=== PATIENT | male | born 1970 | race Caucasian/White ===

== ENCOUNTER 2017-10-13 12:09 | Emergency (ER) | payer BC ==
[2017-10-13 12:14] VITALS: BP 129/94; PULSE 109; TEMP 98.1; BMI 28.2
--- NOTE | 2017-10-13 12:45 | PDOC ---
History of Present Illness - General Chief Complaint: Pain Stated Complaint: KNEE PAIN Time Seen by Provider: 10/13/17 12:23 History Source: Patient Exam Limitations: Clinical Condition - History of Present Illness Initial Comments: 10/13/17 12:42 Patient with no significant past medical history present with complain of persistent left knee pain on the medial side for a month. Patient denies trauma or injury to left knee. Patient reported feeling of left knee swelling which comes and goes. Denies any other symptoms Timing/Duration: other (1 month ) Past History - Past Medical History Allergies/Adverse Reactions: Allergies Allergy/AdvReac Type Severity Reaction Status Date / Time piperacillin sodium Allergy Intermediate Difficulty Verified 10/13/17 12:13 [From Zosyn] Breathing tazobactam sodium Allergy Intermediate Difficulty Verified 10/13/17 12:13 [From Zosyn] Breathing vancomycin Allergy Itching Verified 10/13/17 12:13 Home Medications: Ambulatory Orders Leg Brace [Knee Brace] 1 each MC DAILY #1 each 10/13/17 Naproxen 500 mg PO BID PRN #20 tablet 10/13/17 Asthma: No COPD: No - Suicide/Smoking/Psychosocial Hx Smoking Status: No Smoking History: Never smoked Have you smoked in the past 12 months: No Number of Cigarettes Smoked Daily: 0 Hx Alcohol Use: No Drug/Substance Use Hx: No Substance Use Type: None Review of Systems - Review of Systems Able to Perform ROS?: Yes Is the patient limited Filipino proficient: No Constitutional: No: Chills, Diaphoresis, Fever, Loss of Appetite, Malaise, Night Sweats, Weakness, Weight Stable, Unintentional Wgt. Loss, Unexplained wgt Loss, Other HEENTM: No: Eye Pain, Blurred Vision, Tearing, Recent change in vision, Double Vision, Cataracts, Ear Pain, Ocular Prothesis, Ear Discharge, Nose Pain, Nose Congestion, Tinnitus, Nose Bleeding, Hearing Loss, Throat Pain, Throat Swelling , Mouth Pain, Dental Problems, Difficulty Swallowing, Mouth Swelling, Other Respiratory: No: Cough, Orthopnea, Shortness of Breath, SOB with Exertion, SOB at Rest, Stridor, Wheezing, Productive cough, Hemoptysis, Other Cardiac (ROS): No: Chest Pain, Edema, Irregular Heart Rate, Lightheadedness, Palpitations, Syncope, Chest Tightness, Other ABD/GI: No: Abdominal Distended, Abd. Pain w/ defecation, Blood Streaked Bowels , Constipated, Diarrhea, Difficulty Swallowing, Nausea, Poor Appetite, Poor Fluid Intake, Rectal Bleeding, Vomiting, Indigestion, Abdominal cramping, Tarry Stools, Other Musculoskeletal: Yes: Joint Pain (left knee), Joint Swelling (left knee), Muscle Pain (medial side of left knee). No: Joint Stiffness All Other Systems: Reviewed and Negative *Physical Exam - Vital Signs Last Vital Signs Temp Pulse Resp BP Pulse Ox 98.1 F 109 H 20 129/94 99 10/13/17 12:10 10/13/17 12:10 10/13/17 12:10 10/13/17 12:10 10/13/17 12:10 - Physical Exam Comments: 10/13/17 12:43 GENERAL: Well developed, well nourished. Awake and alert. No acute distress. HEENT: Normocephalic, atraumatic. PERRLA, EOMI. No conjunctival pallor. Sclera are non- icteric. Moist mucous membranes. Oropharynx is clear. NECK: Supple. Full ROM. No JVD. Carotid pulses 2+ and symmetric, without bruits. No thyromegaly. No lymphadenopathy. CARDIOVASCULAR: Regular rate and rhythm. No murmurs, rubs, or gallops. Distal pulses are 2+ and symmetric. PULMONARY: No evidence of respiratory distress. Lungs clear to auscultation bilaterally. No wheezing, rales or rhonchi. ABDOMINAL: Soft. Non-tender. Non-distended. No rebound or guarding. No organomegaly. Normoactive bowel sounds. MUSCULOSKELETAL : Moderate tenderness over medial collateral ligaments of left knee which is worse with external rotation of left lower leg. Mild swelling over medial side of left knee. Negative anterior-posterior drawer tests of left knee.Normal range of motion at all joints. No bony deformities EXTREMITIES: No cyanosis. No clubbing. No edema. No calf tenderness. SKIN: Warm and dry. Normal capillary refill. No rashes. No jaundice. NEUROLOGICAL: Alert, awake, appropriate. Cranial nerves 2-12 intact. No deficits to light touch and temperature in face, upper extremities and lower extremities. No motor deficits in the in face, upper extremities and lower extremities. Normoreflexic in the upper and lower extremities. Normal speech. Toes are down- going bilaterally. Gait is normal without ataxia. PSYCHIATRIC: Cooperative. Good eye contact. Appropriate mood and affect. General Appearance: Yes: Nourished, Appropriately Dressed. No: Apparent Distress ED Treatment Course - RADIOLOGY Radiology Studies Ordered: Category Date Time Status KNEE 3 POS-LEFT [RAD] Stat Radiology 10/13/17 12:40 Ordered Medical Decision Making - Medical Decision Making 10/13/17 12:45 Patient with no sick the past medical history present with complain of persistent left knee pain for a month without trauma or injury. Exam shows moderate tenderness over medial collateral ligament of left knee. Symptoms likely knee sprain. X-ray of left knee ordered to rule out acute pathology or fracture. 10/13/17 13:28 X-ray of left knee shows no acute fracture dislocation. X-ray shows mild arthritis changes with small joint effusion. Patient will be treated on NSAIDs and knee brace with orthopedist follow-up *DC/Admit/Observation/Transfer Diagnosis at time of Disposition: Ankle sprain Qualifiers: Encounter type: initial encounter Involved ligament of ankle: unspecified ligament Laterality: left Qualified Code(s): S93.402A - Sprain of unspecified ligament of left ankle, initial encounter - Discharge Dispostion Disposition: HOME Condition at time of disposition: Stable Decision to Admit order: No - Prescriptions Prescriptions: Leg Brace [Knee Brace] 1 each MC DAILY #1 each Naproxen 500 mg PO BID PRN #20 tablet PRN Reason: knee pain - Referrals Referrals: Lencho Kemp MD [Primary Care Provider] - - Patient Instructions Printed Discharge Instructions: DI for Knee Effusion, DI for Knee Pain Additional Instructions: Take prescribed medication as needed for pain. Keep prescribed knee brace on until symptoms resolve. Follow up with preferred orthopedics if no improvement in 5 days - Post Discharge Activity Forms/Work/School Notes: Back to Work
[2017-10-13] MEDS ORDERED: NAPROXEN 500 MG TABLET (FP) PO ONE (13:33)
[2017-10-13] MEDS ORDERED: NAPROXEN 500 MG TABLET (FP) ONE (13:37)
== END 2017-10-13 13:48 | disposition home or self-care (01) ==
LOC: JERFT 12:09
PROC: 2W3RXYZ Immobilization of Left Lower Leg using Other Device (ICD-10-PCS; principal; 2017-10-13)
DX: M25.462 Effusion, left knee (principal)
CPT/HCPCS: 73562-TC-LT-FY; 99281-25

== ENCOUNTER 2017-12-08 11:45 | Emergency (ER) | payer OTHER, BC ==
[2017-12-08 11:50] VITALS: BP 132/81; PULSE 92; TEMP 98.6; BMI 29.0
--- NOTE | 2017-12-08 12:31 | PDOC ---
History of Present Illness - General Chief Complaint: Back Pain Stated Complaint: BACK PAIN JOB INJURY Time Seen by Provider: 12/08/17 12:09 History Source: Patient Exam Limitations: No Limitations - History of Present Illness Initial Comments: 12/08/17 12:32 Patient states while at work today bent over to lift some kidney lid or and had an acute onset of spasm and pain in his back. States has suffered from disc disease and has resolved with therapy and some medications but has not had a problem for many months. States this morning with a small movement re- exacerbated his low back pain. Patient states has some testicular numbness but is able to urinate. States that happened with the previous low back injury. Is ambulatory and denies foot drop. Occurred: reports: just prior to arrival Severity: reports: mild, moderate Pain Location: reports: back Method of Injury: Yes: other (heavy lifting) Modifying Factors: improves with: None Associated Symptoms (Fall): denies symptoms Past History - Travel Traveled outside of the country in the last 30 days: No Close contact w/someone who was outside of country & ill: No - Past Medical History Allergies/Adverse Reactions: Allergies Allergy/AdvReac Type Severity Reaction Status Date / Time piperacillin sodium Allergy Intermediate Difficulty Verified 12/08/17 11:47 [From Zosyn] Breathing tazobactam sodium Allergy Intermediate Difficulty Verified 12/08/17 11:47 [From Zosyn] Breathing vancomycin Allergy Itching Verified 12/08/17 11:47 Home Medications: Ambulatory Orders Leg Brace [Knee Brace] 1 each MC DAILY #1 each 10/13/17 Naproxen 500 mg PO BID PRN #20 tablet 10/13/17 Cyclobenzaprine HCl 10 mg PO Q8H PRN #14 tablet 12/08/17 Naproxen [Naprosyn -] 500 mg PO BID #30 tablet 12/08/17 Asthma: No COPD: No Other medical history: BACK PROBLEMS - Suicide/Smoking/Psychosocial Hx Smoking Status: No Smoking History: Never smoked Have you smoked in the past 12 months: No Number of Cigarettes Smoked Daily: 0 Information on smoking cessation initiated: No Hx Alcohol Use: No Drug/Substance Use Hx: No Substance Use Type: None Trauma Specific PMHX - Complaint Specific PMHX Arthritis: No Back Injury: No Neck Injury: No Hx Sacro Iliac Joint Dysfunction: No Review of Systems - Review of Systems Able to Perform ROS?: Yes Is the patient limited Danish proficient: Yes Constitutional: Yes: Symptoms Reported, See HPI, Malaise. No: Fever HEENTM: No: Symptoms Reported Respiratory: Yes: Symptoms reported Musculoskeletal: Yes: Symptoms Reported, See HPI, Back Pain, Muscle Pain Integumentary: Yes: Symptoms Reported Neurological: Yes: Symptoms reported All Other Systems: Reviewed and Negative *Physical Exam - Vital Signs Last Vital Signs Temp Pulse Resp BP Pulse Ox 98.6 F 92 H 18 132/81 100 12/08/17 11:47 12/08/17 11:47 12/08/17 11:47 12/08/17 11:47 12/08/17 11:47 - Physical Exam General Appearance: Yes: Nourished, Appropriately Dressed, Apparent Distress, Moderate Distress HEENT: positive: EZEQUIEL, Normal ENT Inspection, TMs Normal, Pharynx Normal Neck: positive: Supple. negative: Tender Gastrointestinal/Abdominal: positive: Soft. negative: Tender Musculoskeletal: positive: Normal Inspection, Decreased Range of Motion, Muscle Spasm (10th tight spasm noted to the left side paravertebral spinous musculature ). negative: CVA Tenderness Integumentary: positive: Dry, Pale Neurologic: positive: ip paralegal II-XII NML intact, Fully Oriented, Alert, Normal Mood/ Affect, Normal Response. negative: Motor Strength 5/5 Progress Note - Progress Note Progress Note: Acute on chronic back pain. With spasm. We'll treat with NSAIDs and cyclobenzaprine. Given dose of Toradol here and 5mg of Valium by mouth *DC/Admit/Observation/Transfer Diagnosis at time of Disposition: Spasm of muscle of lower back - Discharge Dispostion Disposition: HOME Condition at time of disposition: Stable Decision to Admit order: No - Referrals Referrals: Lencho Kemp MD [Primary Care Provider] - Piotr Lewis MD [Staff Physician] - - Patient Instructions Printed Discharge Instructions: DI for Low Back Pain Additional Instructions: Rest, no heavy lifting or exercise until pain is resolved Hot soaks to neck and low back as often as possible/hot showers or Jacuzzis No massage or therapy until spasm is gone Continue Naprosyn 500 mg tablet, 1 tablet every 12 hours for the next 3 days then as needed for pain and swelling Cyclobenzaprine 1-10mg every 8 hours as needed for spasm If not significant improvement within 24 hours with medication and rest regime, followup with private physician for change in medications and /or therapy. - Post Discharge Activity Forms/Work/School Notes: Back to Work
[2017-12-08] MEDS ORDERED: diazePAM 5 MG TABLET PO ONE (12:36)
[2017-12-08] MEDS ORDERED: KETOROLAC TROMETHAMINE 60 MG/2 ML VIAL IM ONE (12:36)
[2017-12-08] MEDS ORDERED: KETOROLAC TROMETHAMINE 30 MG/1 ML VIAL ONE (12:38)
[2017-12-08] MEDS ORDERED: diazePAM 5 MG TABLET ONE (12:38)
== END 2017-12-08 13:15 | disposition home or self-care (01) ==
LOC: JERFT 11:45
PROC: 3E0233Z Introduction of Anti-inflammatory into Muscle, Percutaneous Approach (ICD-10-PCS; principal; 2017-12-08)
DX: M62.830 Muscle spasm of back (principal); X50.9XXA Other and unspecified overexertion or strenuous movements or postures, initial encounter; Y93.89 Activity, other specified; Y92.89 Other specified places as the place of occurrence of the external cause; Y99.0 Civilian activity done for income or pay; Z88.1 Allergy status to other antibiotic agents
CPT/HCPCS: 99281-25

== ENCOUNTER 2018-01-10 04:53 | Day surgery (SDC) | payer BC ==
[2018-01-08 15:05] VITALS: BMI 28.2
[2018-01-10] MEDS ORDERED: LIDOCAINE HCL 1%, 10 MG/ML (20ML VIAL) ONE (07:27)
[2018-01-10] MEDS ORDERED: BACITRACIN 15 GM TUBE TOPICAL OINTMENT ONE (07:27)
[2018-01-10] MEDS ORDERED: PROPOFOL 20 ML ONE (07:55)
[2018-01-10] MEDS ORDERED: MIDAZOLAM HCL 2 MG/2 ML SINGLE DOSE VIAL ONE (07:55)
[2018-01-10] MEDS ORDERED: LIDOCAINE HCL/PF 2% SDV 5ML VIAL ONE (07:56)
[2018-01-10] MEDS ORDERED: ceFAZolin SODIUM 1 GM VIAL ONE (08:09)
[2018-01-10] MEDS ORDERED: ceFAZolin SODIUM 1 GM VIAL IVPB ONE (08:09)
[2018-01-10] MEDS ORDERED: DEXAMETHASONE SOD PHOSPHATE 4 MG/1 ML VIAL ONE (08:12)
[2018-01-10] MEDS ORDERED: KETOROLAC TROMETHAMINE 30 MG/1 ML VIAL ONE (08:30)
[2018-01-10] MEDS ORDERED: LIDOCAINE HCL 1%, 10 MG/ML (20ML VIAL) PNB ONE (08:31)
[2018-01-10] MEDS ORDERED: oxyCODONE HCL 5 MG TABLET PO PRN ×2 (08:42→08:47)
[2018-01-10] MEDS ORDERED: DEXTROSE 5%-0.45% SALINE 1,000 ML IV SCH (08:45)
--- NOTE | 2018-01-10 08:45 | OP ---
Operative Note - Note: Operative Date: 01/10/18 Pre-Operative Diagnosis: left spermatocele Operation: left spermatocelectomy Findings: left spermatocele Post-Operative Diagnosis: Same as Pre-op Surgeon: Ady Shea Anesthesia: General Specimens Removed: spermatocele sac Estimated Blood Loss (mls): 2 Drains & Tubes with Location: errol Operative Report Dictated: Yes
[2018-01-10] MEDS ORDERED: ONDANSETRON 4 MG/2 ML VIAL IVPUSH PRN (08:47)
[2018-01-10] MEDS ORDERED: PROMETHAZINE HCL 25 MG/1 ML VIAL IVPUSH PRN (08:47)
[2018-01-10] MEDS ORDERED: LABETALOL HCL 5 MG/1 ML (100MG/20 ML VIAL) IVPUSH ONE (08:47)
[2018-01-10] MEDS ORDERED: LACTATED RINGERS SOLUTION 1,000 ML IV SCH (09:00)
--- NOTE | 2018-01-10 09:05 | OP ---
DATE OF OPERATION: 01/10/2018 PREOPERATIVE DIAGNOSIS: Left spermatocele. POSTOPERATIVE DIAGNOSIS: Left spermatocele. PROCEDURE: Left spermatocelectomy. SURGEON: Ady Vora MD INDICATIONS: Patient is a 47-year-old male with symptomatic left spermatocele who elected to undergo a spermatocelectomy. Risks, benefits, and alternatives were discussed, and patient consented to the procedure. He understood the risks also of recurrent spermatocele and persistent abdominal pain. DESCRIPTION OF PROCEDURE: After informed consent was obtained, the patient was taken to the OR and placed supine on the operating room table. After cardiac monitoring administered and general anesthesia established, the scrotum was prepped and draped in standard surgical fashion. An approximately 2-cm left melisa-scrotal incision was created with a No. 15 blade, and then using cautery, the dartos layer was incised as well as the tunica vaginalis. The testis was then delivered. An approximately 2-cm cyst was seen at the epididymis. The cyst was excised in its entirety and tied off at its connection to the epididymis with a 3-0 chromic tie and then sent off to Pathology for analysis. No other cysts were noted, and testicle was placed back in its normal anatomic position. A Yolanda drain was placed in the incision, and the dartos layer was closed with an interrupted 3-0 chromic suture, and the skin was closed with interrupted 3-0 chromic suture, as well. Fluffs and scrotal support were placed. Patient was then awoken from anesthesia and transferred to the recovery room in stable condition. There were no complications. Estimated blood loss was minimal. ADY VORA M.D. [id number]
[2018-01-10 09:37] VITALS: TEMP 98.2
[2018-01-10] MEDS ORDERED: oxyCODONE HCL 5 MG TABLET ONE ×2 (09:58→10:58)
[2018-01-10] MEDS ORDERED: oxyCODONE HCL 5 MG TABLET PO ONE ×2 (10:00→11:02)
[2018-01-10 12:17] VITALS: BP 106/66; PULSE 96
--- NOTE | 2018-01-11 18:44 | PATH ---
Surgical Pathology Report Patient Name: SYEDA CEBALLOS Med. Rec. #: [id number] /Age/Gender: 1970 (Age: 47) / M Account: [id number] Location: [facility] SURGICAL Taken: 01/10/2018 Received: 01/10/2018 Reported: 01/11/2018 Physicians: Ady Shea M.D. Specimen(s) Received LEFT SPERMATOCELE Clinical History Left spermatocele Final Diagnosis SPERMATOCELE, LEFT, SPERMATOCELECTOMY: CYSTIC LESION COMPATIBLE WITH SPERMATOCELE AND PORTION OF EPIDIDYMIS. Electronically Signed Alisson Chery M.D. Gross Description Received in formalin labeled "left spermatocele," is a 3.2 x 0.9 x 0.8 cm waite-luis portion of soft tissue. [employer] sections are submitted in one cassette. DL/01/10/2018 saudi/01/10/2018
== END 2018-01-10 12:20 | disposition home or self-care (01) ==
LOC: JASU-SURG 04:53
PROVIDERS: ATTEND Urology
PROC: 0VBK0ZZ Excision of Left Epididymis, Open Approach (ICD-10-PCS; principal; 2018-01-10 08:00)
DX: N43.40 Spermatocele of epididymis, unspecified (principal)
CPT/HCPCS: 88304-TC; 94760

== ENCOUNTER 2018-05-30 04:58 | Emergency (ER) | payer BC ==
[2018-05-30 05:14] VITALS: BP 145/93; PULSE 98; TEMP 99.6; BMI 29.0
[2018-05-30] MEDS ORDERED: KETOROLAC TROMETHAMINE 15 MG/ML VIAL IVPUSH ONE (05:22)
[2018-05-30] MEDS ORDERED: ONDANSETRON 4 MG/2 ML VIAL IVPUSH ONE (05:22)
[2018-05-30] MEDS ORDERED: ACETAMINOPHEN 1000 MG/100 ML VIAL (NON FORMULARY) IVPB ONE (05:23)
[2018-05-30] MEDS ORDERED: DEXAMETHASONE 4 MG TABLET (FP) PO ONE (05:30)
[2018-05-30] MEDS ORDERED: DEXAMETHASONE SOD PHOSPHATE 10 MG/1 ML VIAL ONE (05:33)
[2018-05-30] MEDS ORDERED: ONDANSETRON 4 MG/2 ML VIAL ONE (05:34)
[2018-05-30] MEDS ORDERED: KETOROLAC TROMETHAMINE 15 MG/ML VIAL ONE (05:34)
[2018-05-30] MEDS ORDERED: ACETAMINOPHEN INJECTION 100 ML IVPB ONE (05:34)
--- NOTE | 2018-05-30 05:35 | PDOC ---
History of Present Illness - General Chief Complaint: Sore Throat Stated Complaint: HEADACHE,SORE THROAT Time Seen by Provider: 05/30/18 05:08 History Source: Patient Exam Limitations: No Limitations - History of Present Illness Initial Comments: 05/30/18 05:24 HPI 47 YOM with no medical history presenting with progressive cough, headache, fever, chills, weakness, nausea and vomiting, chest discomfort and sore throat/ ear pain x 12 hours. has had 10 episodes of NBNB emesis, associated with nausea and difficulty tolerating PO intake. took ibuprofen and otc robitussin without relief. +sick contact, coworker 3 days ago with similar sx, with respiratory s/s. Denies bladder and bowel problems, leg swelling, No travel. No new changes in medications. No suspicious food intake Allergies: zosyn, vancomycin Past Medical History: none Social history: No tobacco, ETOH or drug use. Surgical history: spermatocele surgery Meds: as documented in EMR Review of systems Constitutional: + fevers or chills. +general weakness. HEENT: +headache or dizziness. +ear ache, +sore throat, +difficulty swallowing. No congestion. No visual/hearing disturbances. CVS: no syncope. +chest pain Resp: no sob. + cough. Gastrointestinal: +abdominal pain, nausea or vomiting. Genitourinary: no urinary sx, hematuria. MUSCULOSKELETAL: No joint pain and swelling. No neck or back pain. +myalgias SKIN: no redness or skin changes, no discharge, no rash. No wounds. Hematologic: no easy bruising/bleeding. NEUROLOGIC: +headache, dizziness, No LOC or altered mental status. No weakness, numbness or tingling. Allergic/Immunologic: abx allergies. no seasonal allergies. All other systems reviewed and negative, or as documented in HPI. Physical exam: General: malaised appearing. HEENT: NCAT, PERRL, EOMI, clear conjunctiva, anicteric, dry mucus membranes, + erythematous oropharynx with +tonsillar exudates, no oral lesions.. bilateral T.M clear, no pinna tenderness. normal phonation, midline uvula. Neck: neck supple, FROM Resp: CTAB, normal and even respirations, no respiratory distress CVS: +mild tachycardia, no murmurs, 2+ peripheral pulses throughout, no peripheral edema Abdomen: soft, NTND, no peritoneal signs. no CVAT. Back: nontender, normal inspection and ROM MSK: no edema, UGALDE x4, ROM intact. No clubbing or cyanosis. normal bulk and tone. Neuro: alert, mentating Skin: warm and well perfused, cap refill <2 sec, normal color, no rash 05/30/18 05:24 05/30/18 05:35 05/30/18 05:37 Past History - Past Medical History Allergies/Adverse Reactions: Allergies Allergy/AdvReac Type Severity Reaction Status Date / Time piperacillin sodium Allergy Intermediate Difficulty Verified 05/30/18 05:07 [From Zosyn] Breathing tazobactam sodium Allergy Intermediate Difficulty Verified 05/30/18 05:07 [From Zosyn] Breathing vancomycin Allergy Itching Verified 05/30/18 05:07 Home Medications: Ambulatory Orders Naproxen 500 mg PO BID PRN #20 tablet 10/13/17 Cyclobenzaprine HCl 10 mg PO Q8H PRN #14 tablet 12/08/17 Amoxicillin - [Amoxicillin 500mg Capsule -] 500 mg PO BID 10 Days #20 capsule Ondansetron [Zofran Odt -] 4 mg SL TID PRN #9 od.tablet 05/30/18 Anemia: No Asthma: No Cancer: No Cardiac Disorders: No CVA: No COPD: No CHF: No Dementia: No Diabetes: No GI Disorders: Yes (acid reflux) Disorders: No HTN: No Hypercholesterolemia: No Liver Disease: No Seizures: No Thyroid Disease: No - Immunization History Immunization Up to Date: Yes - Suicide/Smoking/Psychosocial Hx Smoking Status: No Smoking History: Never smoked Have you smoked in the past 12 months: No Number of Cigarettes Smoked Daily: 0 Information on smoking cessation initiated: No Hx Alcohol Use: No Drug/Substance Use Hx: No Substance Use Type: None Hx Substance Use Treatment: No *Physical Exam - Vital Signs Last Vital Signs Temp Pulse Resp BP Pulse Ox 99.6 F 98 H 20 145/93 97 05/30/18 05:13 05/30/18 05:13 05/30/18 05:13 05/30/18 05:13 05/30/18 05:13 Heart Score/ECG Review #1 ECG reviewed & interpreted by me at: 05:40 General ECG Interpretation: Sinus Rhythm, No acute ischemic changes Compared to previous ECG there are: No significant change 05/30/18 06:02 EKG sinus tachycardia at 121 bpm, no interval abnormalities, narrow QRS, ST and T wave segments and morphology normal. Nonspecific T wave abnormalities in III only, no contiguous lead changes. - ECG Impressions Tachycardia: Sinus ED Treatment Course - LABORATORY CBC & Chemistry Diagram: 05/30/18 05:31 05/30/18 05:31 Medical Decision Making - Medical Decision Making 05/30/18 05:35 See HPI for details Vital signs reviewed, wnl. no fever here, but LG temp. tachy on exam, likely from brewing fevers. ddx. pharyngitis, strep throat, URI, viral syndrome, influenza, dehydration, electrolyte/metabolic derangements. Prior notes reviewed, including admissions, discharges and consultations. laboratory results and imaging reviewed, basic labs and lytes wnl, notable for leukocytosis of 18K, c/w his infection. nontoxic appearing though, likely from the sore throat/strep pharyngitis. +strep throat, pt opts for amoxicillin x 10 day course, will give first dose. pt has zosyn allergy rxn of difficulty breathing and itch, but has taken amox and unasyn previously w/o issues.. EKG sinus tachycardia at 121 bpm, no interval abnormalities, narrow QRS, ST and T wave segments and morphology normal. Nonspecific T wave abnormalities in III only, no contiguous lead changes. similar to prior. ED course - strep throat. - given dexamethasone, toradol/tylenol, IVF hydration - on reassessment, clinically improved. requesting water, tolerating PO intake. - strict return precautions, including worsening infection, respiratory distress. Dispo: Pt informed of my clinical impression, treatment recommendations and disposition plan. All questions answered to patient's satisfaction and expressed understanding and comfort with this. Reasons for returning to the ED sooner discussed including new or persistent/worsening symptoms with the patient otherwise, follow up with primary care physician. At the time of discharge, the patient is alert, clinically improved, tolerating po and verbalizes understanding of instructions, satisfied with the care received and felt comfortable with the plan. Patient does not suffer from an acute life- threatening medical condition at this time he is safe for outpatient follow-up. 05/30/18 06:03 *DC/Admit/Observation/Transfer Diagnosis at time of Disposition: Strep pharyngitis - Discharge Dispostion Disposition: HOME Condition at time of disposition: Improved Decision to Admit order: No - Prescriptions Prescriptions: Amoxicillin - [Amoxicillin 500mg Capsule -] 500 mg PO BID 10 Days #20 capsule Ondansetron [Zofran Odt -] 4 mg SL TID PRN #9 od.tablet PRN Reason: Nausea And/Or Vomiting - Referrals Referrals: Lencho Kemp MD [Primary Care Provider] - - Patient Instructions Printed Discharge Instructions: DI for Strep Throat Additional Instructions: 1) Please follow-up with your primary care doctor Dr Kemp in the next 1-2 days. Please call tomorrow for for any urgent issues. 2) You were given a copy of the tests performed today. Please bring the results with you and review them with your primary care doctor. Your laboratory work here was remarkable for Strep Throat you were given oral steroids, for the inflammation, tylenol and toradol and IV fluids this is contagious, cover your cough and wash your hands adequately with soap and water. 3) If you have any worsening of symptoms or any other concerns please return to the ED immediately. Return if worsening symptoms including fevers, headache, vomiting, visual or hearing disturbances, abdominal pain, chest pain, shortness of breath, bloody cough, respiratory distress, syncope, dehydration, inability to take things by mouth/vomiting, altered mental status, or worsening concerning symptoms. 4) Please continue taking your home medications as directed. your medications on discharge include amoxicillin antibiotics x 10 days . side effects may include upset stomach, abdominal pain, vomiting, or diarrhea. do not drink alcohol with your medications. if you develop respiratory distress or airway trouble with the antibiotic, stop taking it due to your prior allergies. zofran every 8 hours under the tongue for nausea and vomiting, this will help you keep food and medications down. Please take IBUPROFEN (aka MOTRIN, ADVIL, ALEVE) 400 mg and/or ACETAMINOPHEN ( aka Tylenol) 650-975 mg every 6 hours, as needed, for pain. Please do not take these medications if you have a bleeding disorder, stomach or GI ulcer problems or liver disease. Stay well hydrated and rest adequately. an appointment. If you cannot follow-up with your primary care doctor please return to the ED - Post Discharge Activity Forms/Work/School Notes: Back to Work
[2018-05-30 05:44] LABS: BASO % 0.7 % (0-2.0); EOS % 0.1 % (0-4.5); HEMATOCRIT 44.1 % (35.4-49); HEMOGLOBIN 14.7 GM/dL (11.7-16.9); LYMPH % 4.6 % (8-40); MCH 25.8 pg (25.7-33.7); MCHC 33.4 g/dl (32.0-35.9); MEAN CELL VOLUME 77.3 fl (80-96); MEAN PLT VOLUME 8.6 fl (7.5-11.1); MONO % 7.8 % (3.8-10.2); NEUT % 86.8 % (42.8-82.8); PLATELET COUNT 183 K/MM3 (134-434); RDW 15.4 % (11.9-15.9); WHITE BLOOD COUNT 18.3 K/mm3 (4.0-10.0)
[2018-05-30] MEDS ORDERED: AMOXICILLIN 500 MG CAPSULE (FP) PO ONE (05:45)
[2018-05-30] MEDS ORDERED: AMOXICILLIN 500 MG CAPSULE (FP) ONE (06:02)
[2018-05-30 06:12] LABS: ALK PHOS 68 U/L (45-117); ANION GAP 8 MMOL/L (8-16); BILIRUBIN,TOTAL 0.5 mg/dL (0.2-1); BLOOD UREA NITROGEN 12 mg/dL (7-18); CALCIUM 9.1 mg/dL (8.5-10.1); CHLORIDE 103 mmol/L (98-107); CO2 26 mmol/L (21-32); CREATININE 1.1 mg/dL (0.55-1.3); GLUCOSE,RANDOM 125 mg/dL (74-106); SGOT/AST 17 U/L (15-37); SGPT/ALT 34 U/L (13-61); SODIUM 138 mmol/L (136-145); TOT PROT 8.2 g/dl (6.4-8.2)
--- NOTE | 2018-05-30 12:12 | EKG ---
Test Reason : Blood Pressure : / mmHG Vent. Rate : 121 BPM Atrial Rate : 121 BPM P-R Int : 134 ms QRS Dur : 092 ms QT Int : 304 ms P-R-T Axes : 057 -15 014 degrees QTc Int : 431 ms SINUS TACHYCARDIA POSSIBLE LEFT ATRIAL ENLARGEMENT INFERIOR INFARCT , AGE UNDETERMINED ABNORMAL ECG WHEN COMPARED WITH ECG OF 08-FEB-2015 06:32, NO SIGNIFICANT CHANGE WAS FOUND Confirmed by FAITH CRISOSTOMO, TOVA ([id number]) on 05/30/2018 12:12:20 PM Referred By: Confirmed By:TOVA CUEVAS MD
== END 2018-05-30 06:37 | disposition home or self-care (01) ==
LOC: JER 04:58
DX: J02.0 Streptococcal pharyngitis (principal); B95.0 Streptococcus, group A, as the cause of diseases classified elsewhere; Z88.3 Allergy status to other anti-infective agents
CPT/HCPCS: 36415; 80053; 85025; 87070; 87077; 87804; 87880; 93005; 93010; 99283-25; J0131

== ENCOUNTER 2018-08-05 08:55 | Emergency (ER) | payer OTHER, BC ==
[2018-08-05 09:00] VITALS: BP 151/99; PULSE 94; TEMP 97.8; BMI 29.0
--- NOTE | 2018-08-05 09:47 | PDOC ---
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 08/05/18 13:23 Occurred: reports: just prior to arrival, this morning Severity: reports: mild, moderate Pain Location: reports: upper extremity (ight index finger) Associated Symptoms (Fall): denies symptoms Past History - Travel Traveled outside of the country in the last 30 days: No Close contact w/someone who was outside of country & ill: No - Past Medical History Allergies/Adverse Reactions: Allergies Allergy/AdvReac Type Severity Reaction Status Date / Time piperacillin sodium Allergy Intermediate Difficulty Verified 08/05/18 08:56 [From Zosyn] Breathing tazobactam sodium Allergy Intermediate Difficulty Verified 08/05/18 08:56 [From Zosyn] Breathing vancomycin Allergy Itching Verified 08/05/18 08:56 Home Medications: Ambulatory Orders Clindamycin [Cleocin -] 300 mg PO TID #21 capsule 08/05/18 Anemia: No Asthma: No Cancer: No Cardiac Disorders: No CVA: No COPD: No CHF: No Dementia: No Diabetes: No GI Disorders: Yes (acid reflux) Disorders: No HTN: No Hypercholesterolemia: No Liver Disease: No Seizures: No Thyroid Disease: No - Immunization History Immunization Up to Date: Yes - Suicide/Smoking/Psychosocial Hx Smoking Status: No Smoking History: Current every day smoker Have you smoked in the past 12 months: No Number of Cigarettes Smoked Daily: 20 Information on smoking cessation initiated: No Hx Alcohol Use: No Drug/Substance Use Hx: No Substance Use Type: None Hx Substance Use Treatment: No Trauma Specific PMHX - Complaint Specific PMHX Arthritis: No Back Injury: No Neck Injury: No Hx Sacro Iliac Joint Dysfunction: No Review of Systems - Review of Systems Able to Perform ROS?: Yes Is the patient limited Mongolian proficient: Yes Constitutional: Yes: See HPI. No: Symptoms Reported, Fever HEENTM: No: Symptoms Reported Musculoskeletal: Yes: Symptoms Reported, See HPI. No: Joint Swelling Integumentary: Yes: Symptoms Reported, See HPI, Bruising, Lesions All Other Systems: Reviewed and Negative *Physical Exam - Vital Signs Last Vital Signs Temp Pulse Resp BP Pulse Ox 97.8 F 94 H 18 151/99 97 08/05/18 08:56 08/05/18 08:56 08/05/18 08:56 08/05/18 08:56 08/05/18 08:56 - Physical Exam General Appearance: Yes: Nourished, Appropriately Dressed, Apparent Distress, Mild Distress HEENT: positive: EZEQUIEL, Normal ENT Inspection, TMs Normal, Pharynx Normal Neck: negative: Tender Musculoskeletal: positive: Normal Inspection. negative: Vertebral Tenderness Extremity: positive: Normal Range of Motion (chana flexion and epistaxis), Other ( puncture wounds noted to right index finger, one on the proximal phalanx palmar aspect, and 2 proximal and distal proximal phalanx on the dorsal aspect of right index finger. Patient has full range of motion of finger, strong flexion and extension against resistance, and sensation intact distal to injury.) Integumentary: positive: Swelling, Bruising Neurologic: positive: management professional II-XII NML intact, Fully Oriented, Alert, Normal Mood/ Affect Progress Note - Progress Note Progress Note: wound soaked, cleaned, bacitracin ointment and bulky dressing applied. Started on clindamycin and observed for 30 minutes with no untoward reaction. Tetanus/ diphtheria/pertussis booster updated today and will follow-up with PMD as needed for wound check *DC/Admit/Observation/Transfer Diagnosis at time of Disposition: Dog bite of finger Qualifiers: Encounter type: initial encounter Qualified Code(s): S61.259A - Open bite of unspecified finger without damage to nail, initial encounter - Discharge Dispostion Disposition: HOME Condition at time of disposition: Stable Decision to Admit order: No - Prescriptions Prescriptions: Clindamycin [Cleocin -] 300 mg PO TID #21 capsule - Referrals Referrals: Lencho Kemp MD [Primary Care Provider] - - Patient Instructions Printed Discharge Instructions: How to Care for a Domestic Animal Bite Additional Instructions: Rest, keep area elevated. Avoid strenuous activity or exercise until wound is healed Use hot soaks to area to bring more blood to the surface and encourage drainage May change dressings as needed to keep clean - Allow water from shower to wash area thoroughly for 2-3 minutes, and pat dry upon exit of shower and replace dressing. Change his dressing daily until the wound is completely healed. May use Tylenol or Motrin for mild pain relief Use stronger medications as directed and prescribedContinue all medications as prescribed Followup with private physician in 2-3 days for wound check Return to emergency Department for worsening swelling, pain, redness, fevers as needed - Post Discharge Activity Forms/Work/School Notes: Back to Work
[2018-08-05] MEDS ORDERED: DIPHTH,PERTUSS(ACELL),TET 0.5 ML DISP.SYRIN IM ONE ×2 (09:52→09:58)
[2018-08-05] MEDS ORDERED: CLINDAMYCIN HCL 150 MG CAPSULE (FP) PO ONE (09:53)
[2018-08-05] MEDS ORDERED: BACITRACIN 15 GM TUBE TOPICAL OINTMENT TP ONE (09:55)
[2018-08-05] MEDS ORDERED: BACITRACIN 0.9 GM PACKET ONE (09:57)
[2018-08-05] MEDS ORDERED: CLINDAMYCIN HCL 150 MG CAPSULE (FP) ONE (09:57)
== END 2018-08-05 10:31 | disposition home or self-care (01) ==
LOC: JERFT 08:55
PROC: 3E0234Z Introduction of Serum, Toxoid and Vaccine into Muscle, Percutaneous Approach (ICD-10-PCS; principal; 2018-08-05)
DX: S61.250A Open bite of right index finger without damage to nail, initial encounter (principal); W54.0XXA Bitten by dog, initial encounter; Y93.K9 Activity, other involving animal care; Y92.538 Other ambulatory health services establishments as the place of occurrence of the external cause; Y99.0 Civilian activity done for income or pay; Z88.1 Allergy status to other antibiotic agents
CPT/HCPCS: 90715; 99282-25

== ENCOUNTER 2018-09-24 06:49 | Emergency (ER) | payer BC, OTHER | END 2018-09-24 09:13 | disposition home or self-care (01) | LOC: JER 06:49 ==

== ENCOUNTER 2019-01-14 13:45 | Emergency (ER) | payer BC ==
[2019-01-14 14:02] VITALS: TEMP 98.2; BMI 27.9
[2019-01-14] MEDS ORDERED: MAG HYDROX/AL HYDROX/SIMETH 30 ML UNIT-DOSE CUP PO ONE (15:21)
[2019-01-14] MEDS ORDERED: FAMOTIDINE 20 MG/50 ML IVPB 20 MG/50 ML MG IVPB ONE ×2 (15:21→15:27)
[2019-01-14] MEDS ORDERED: MAG HYDROX/AL HYDROX/SIMETH 30 ML UNIT-DOSE CUP ONE (15:27)
[2019-01-14 15:41] LABS: BASO % 0.3 % (0-2.0); EOS % 1.1 % (0-4.5); HEMATOCRIT 46.7 % (35.4-49); HEMOGLOBIN 15.4 GM/dL (11.7-16.9); LYMPH % 27.8 % (8-40); MCH 26.1 pg (25.7-33.7); MCHC 32.9 g/dl (32.0-35.9); MEAN CELL VOLUME 79.3 fl (80-96); MEAN PLT VOLUME 8.7 fl (7.5-11.1); MONO % 7.5 % (3.8-10.2); NEUT % 63.3 % (42.8-82.8); PLATELET COUNT 216 K/MM3 (134-434); RBC 5.89 M/mm3 (4.00-5.60); RDW 15.6 % (11.9-15.9); WHITE BLOOD COUNT 8.1 K/mm3 (4.0-10.0)
--- NOTE | 2019-01-14 16:03 | PDOC ---
History of Present Illness - General Chief Complaint: Chest Pain Stated Complaint: CHEST PAIN Time Seen by Provider: 01/14/19 14:47 - History of Present Illness Initial Comments: 01/14/19 15:31 HPI: 48 y/o M with hx of GERD and ?h pylori presenting with chest pain since yesterday. He states he was sitting down eating and when he got up he felt left lower chest discomfort that was non radiating. Pain is described as a discomfort burning. He denies having this pain before. He states the pain is worse with breathing and motion. He denies recent exercise, trauma, intense activity. He went to the pharmacy and took 3 pills of Jasmyne each 375mg. He states his symptoms improved but did not resolve. His symptoms persisted to today prompting presentation. He denies fever, chills, SOB, palpitations, cough , URI-like syndrome. abd pain, diaphoresis, n/v. Denies risk sick contacts or travel. PMHx: as noted above ROS: as noted SHx: Denies tobacco use; no alcohol use; no rec drugs Allergies: see chart ROS: GENERAL/CONSTITUTIONAL: No fever or chills. No weakness. HEAD, EYES, EARS, NOSE AND THROAT: No change in vision. No ear pain or discharge. No sore throat. CARDIOVASCULAR: +chest pain; no shortness of breath RESPIRATORY: No cough, wheezing, or hemoptysis. GASTROINTESTINAL: No nausea, vomiting, diarrhea or constipation. GENITOURINARY: No dysuria, frequency, or change in urination. MUSCULOSKELETAL: No joint or muscle swelling or pain. No neck or back pain. SKIN: No rash NEUROLOGIC: No headache, vertigo, loss of consciousness, or change in strength/ sensation. ENDOCRINE: No increased thirst. No abnormal weight change HEMATOLOGIC/LYMPHATIC: No anemia, easy bleeding, or history of blood clots. ALLERGIC/IMMUNOLOGIC: No hives or skin allergy. PE: GENERAL: Awake, alert, and fully oriented, no acute distress HEAD: No signs of trauma, normocephalic, atraumatic EYES: EOMI, sclera anicteric, conjunctiva clear ENT: Auricles normal inspection, hearing grossly normal, nares patent, oropharynx clear without exudates. Moist mucosa NECK: Normal ROM, no lymphadenopathy LUNGS: No increased work of breathing, symmetrical chest rise, clear to auscultation bilaterally, no wheezes, crackles or rhonchi HEART: Regular rate and rhythm, normal S1 and S2, no murmurs, peripheral pulses 2+ and equal bilaterally. chest pain nonreproducible ABDOMEN: Soft, nondistended, nontender, normoactive bowel sounds. No guarding, no rebound. No masses. No CVAT EXTREMITIES: Normal inspection, Normal range of motion, no edema. No clubbing or cyanosis. NEUROLOGICAL: Cranial nerves II through XII grossly intact. Normal speech, normal gait, no focal sensorimotor deficits SKIN: Warm, Dry, normal turgor, no rashes or lesions noted Past History - Past Medical History Allergies/Adverse Reactions: Allergies Allergy/AdvReac Type Severity Reaction Status Date / Time piperacillin sodium Allergy Intermediate Difficulty Verified 09/24/18 07:10 [From Zosyn] Breathing tazobactam sodium Allergy Intermediate Difficulty Verified 09/24/18 07:10 [From Zosyn] Breathing vancomycin Allergy Itching Verified 09/24/18 07:10 Home Medications: Ambulatory Orders Famotidine [Pepcid] 20 mg PO BID #30 tablet 01/14/19 Anemia: No Asthma: No Cancer: No Cardiac Disorders: No CVA: No COPD: No CHF: No Dementia: No Diabetes: No GI Disorders: Yes (acid reflux) Disorders: No HTN: No Hypercholesterolemia: No Liver Disease: No Seizures: No Thyroid Disease: No - Immunization History Immunization Up to Date: Yes - Psycho Social/Smoking Cessation Hx Smoking Status: No Smoking History: Never smoked Have you smoked in the past 12 months: No Number of Cigarettes Smoked Daily: 20 Hx Alcohol Use: No Drug/Substance Use Hx: No Substance Use Type: None Hx Substance Use Treatment: No *Physical Exam - Vital Signs Last Vital Signs Temp Pulse Resp BP Pulse Ox 98.2 F 100 H 18 123/92 98 01/14/19 13:57 01/14/19 13:57 01/14/19 13:57 01/14/19 13:57 01/14/19 14:45 Heart Score/ECG Review - History History: Slightly suspicious - Electrocardiogram EKG: Normal - Age Age: 45-65 - Risk Factors Based on the list above the patient has:: No risk factors known - Troponin Troponin: </= normal limit - Score Heart Score - Total: 1 ED Treatment Course - LABORATORY CBC & Chemistry Diagram: 01/14/19 15:03 01/14/19 15:03 - RADIOLOGY Radiology Studies Ordered: Category Date Time Status CHEST PA & LAT [RAD] Stat Radiology 01/14/19 15:09 Ordered Medical Decision Making - Medical Decision Making 01/14/19 16:47 48 y/o M with hx of GERD and ?h pylori presenting with chest pain since yesterday after a large meal. VSS, AF. PE unremarkable. DDx includes gastritis, gerd, acs, esophagitis. Heart score 1 -cbc, cmp, lipase, ekg, cxr -maalox, pepcid 01/14/19 16:48 patient symptoms improved with conservative management labs wnl ekg unremarkable; nsl, nl intervals, no sawyer/d discussed results with patient and return pcxns, he understands and is comfortable with dc home with GI followup Discharge - Discharge Information Problems reviewed: Yes Clinical Impression/Diagnosis: Chest pain Qualifiers: Chest pain type: unspecified Qualified Code(s): R07.9 - Chest pain, unspecified Condition: Improved Disposition: HOME - Additional Discharge Information Prescriptions: Famotidine [Pepcid] 20 mg PO BID #30 tablet - Follow up/Referral Referrals: Lenhco Kemp MD [Primary Care Provider] - - Patient Discharge Instructions Patient Printed Discharge Instructions: DI for Atypical Chest Pain Additional Instructions: Return to the ED if there is concern for new or worsening symptoms including severe chest pain, shortness of breath, fainting, persistent vomiting. Please followup with you GI doctor. We have included a referral for Dr Bales in the paperwork for which you may also followup as a GI doctor. Please followup with your PCP as well for re-evaluation Please take the pepcid 20mg twice a day in addition to the omeprazole that you have been taking. Avoid diet that is high in fats and spicy food. Refrain from eating within the last 4-5 hours prior to sleeping. Limit food intake so to no cause abdominal upset - Post Discharge Activity
[2019-01-14 16:18] LABS: ALBUMIN 3.9 g/dl (3.4-5.0); BILIRUBIN,TOTAL 0.2 mg/dL (0.2-1); BLOOD UREA NITROGEN 18.7 mg/dL (7-18); CALCIUM 9.2 mg/dL (8.5-10.1); CREATININE 0.8 mg/dL (0.55-1.3)
--- NOTE | 2019-01-14 16:24 | PDOC ---
Attending Attestation - Resident Resident Name: Maurisio,Rezajulito - ED Attending Attestation I have performed the following: I have examined & evaluated the patient, The case was reviewed & discussed with the resident, I agree w/resident's findings & plan - HPI HPI: 01/14/19 16:19 48y/o M h/o gastric upset (reportedly diagnosed with h. pylori in the past, did not f/u for egd, takes omeprazole daily) presents now with epigastric pain since last night at 4 PM. Patient reports onset of mild to moderate localized epigastric pain radiating slightly to the back, associated with some heartburn but no nausea/vomiting/diarrhea/constipation/melena. Denies any chest pain or dyspnea, has no exercise limitations at baseline, denies any fevers or chills or cough. Patient took 300 mg aspirin x3 without relief, Presents for evaluation. At baseline, patient reports intermittent use of NSAIDs for back pain, denies any alcohol or drug use. - Physicial Exam PE: 01/14/19 16:24 Vital signs stable, heart rate 100, normal O2 sat Well-appearing ambulating comfortably throughout the department, speaking full sentences No jaundice or pallor Heart is regular, lungs are clear Abdomen is soft/nondistended. Epigastric discomfort to palpation without guarding or rebound. No CVA tenderness. No rash, no edema - Medical Decision Making 01/14/19 16:24 48-year-old male with history of presumed gastritis presents with dyspepsia since yesterday, localizes to epigastric region without vomiting/diarrhea/fever or peritoneal findings on examination. Presentation seems most consistent with acute on chronic gastritis/dyspepsia, rule out gallbladder or pancreatic etiology, not consistent with cardiopulmonary etiology. Labs including lipase and single troponin, which would be reassuring in the setting of low heart score and 24 hours of symptoms Antacid EKG Disposition accordingly with GI follow-up, would add Pepcid to omeprazole course. Heart Score/ECG Review #1 ECG reviewed & interpreted by me at: 13:52 General ECG Interpretation: Sinus Rhythm, Normal Rate (95), Normal Intervals ( qtc 427), No acute ischemic changes (q waves III/avf) Compared to previous ECG there are: No significant change (c/w 05/30/18)
[2019-01-14 17:13] VITALS: BP 127/93; PULSE 86
--- NOTE | 2019-01-15 09:56 | EKG ---
Test Reason : Blood Pressure : / mmHG Vent. Rate : 095 BPM Atrial Rate : 095 BPM P-R Int : 150 ms QRS Dur : 102 ms QT Int : 340 ms P-R-T Axes : 059 -16 011 degrees QTc Int : 427 ms NORMAL SINUS RHYTHM POSSIBLE LEFT ATRIAL ENLARGEMENT BORDERLINE ECG WHEN COMPARED WITH ECG OF 30-MAY-2018 05:40, NO SIGNIFICANT CHANGE WAS FOUND Confirmed by MELI CRISOSTOMO, STEFFANIE ([id number]) on 01/15/2019 9:56:48 AM Referred By: Confirmed By:STEFFANIE GARRISON MD
== END 2019-01-14 17:27 | disposition home or self-care (01) ==
LOC: JER 13:45
PROC: 3E033GC Introduction of Other Therapeutic Substance into Peripheral Vein, Percutaneous Approach (ICD-10-PCS; principal; 2019-01-14)
DX: R07.9 Chest pain, unspecified (principal); Z88.8 Allergy status to other drugs, medicaments and biological substances; Z88.1 Allergy status to other antibiotic agents; K21.9 Gastro-esophageal reflux disease without esophagitis
CPT/HCPCS: 36415; 71046-TC-FY; 80053; 82550; 82553; 83690; 84484; 85025; 93005; 93010; 99284-25

== ENCOUNTER 2019-04-13 01:30 | Inpatient (IN) | payer BC ==
[2019-04-13 01:56] VITALS: BMI 28.7
[2019-04-13] MEDS ORDERED: IBUPROFEN 400 MG TABLET (FP) PO ONE (02:02)
--- NOTE | 2019-04-13 02:02 | PDOC ---
Attending Attestation - Resident Resident Name: Kumar Correia - ED Attending Attestation I have performed the following: I have examined & evaluated the patient, The case was reviewed & discussed with the resident, I agree w/resident's findings & plan - HPI HPI: 04/13/19 02:31 Pt comes with RLQ pain. No other complaint. - Physicial Exam PE: 04/13/19 04:59 Pt has RLQ pain and rebound and guarding. Afebrile No flank pain No fever heart and lungs normal - Medical Decision Making 04/13/19 02:[address] abd/pelvis pending 04/13/19 03:38 chem and lactic acid are normal 04/13/19 04:28 Patient Name: SYEDA CEBALLOS THIS IS A PRELIMINARY REPORT FROM [facility] DATE OF SERVICE: 2019-04-13 03:17:23 IMAGES: 331 EXAM: ABDOMEN \T\ PELVIS CT WITH CONTR HISTORY: Right lower quadrant pain COMPARISON: None. FINDINGS: Lung bases are clear. The visualized cardiac chambers are normal size and configuration. Normal liver, gallbladder, pancreas, spleen, adrenal glands and kidneys. The stomach and abdominal small and large bowel are normal. There is no aortic aneurysm. There is no significant retroperitoneal lymphadenopathy. A small fat-containing umbilical hernia is noted. The pelvic small and large bowel are normal. There is no evidence of appendicitis, although the appendix is not clearly identified. The urinary bladder and prostate gland are normal. No pelvic free fluid is identified. There is no significant pelvic lymphadenopathy. IMPRESSION: No localizing signs for acute pathology 04/13/19 05:00 Pt has a 7.8mm diameter appendix as far as I can tell. We will admit for observation and analgesia and antibiotics.
--- NOTE | 2019-04-13 02:08 | PDOC ---
History of Present Illness - General Chief Complaint: Pain Stated Complaint: PAIN Time Seen by Provider: 04/13/19 01:54 - History of Present Illness Initial Comments: 04/13/19 02:04 Mr. Da Silva is a 48 yo male w/ no pmh, up to date on immunizations who presents for evaluation of 1 day history of RLQ pain. Patient reports pain started around 10am this morning and has remained constant all day. Rates pain as 5/10. Took 2 tylenol pills earlier today at 5pm however reports pain persists. Denies other symptoms at this time. The patient denies chest pain, shortness of breath, headache and dizziness. Denies fever, chills, nausea, vomit, diarrhea and constipation. Denies dysuria, frequency, urgency and hematuria. Past History - Past Medical History Allergies/Adverse Reactions: Allergies Allergy/AdvReac Type Severity Reaction Status Date / Time piperacillin sodium Allergy Intermediate Difficulty Verified 04/13/19 01:56 [From Zosyn] Breathing tazobactam sodium Allergy Intermediate Difficulty Verified 04/13/19 01:56 [From Zosyn] Breathing vancomycin Allergy Itching Verified 04/13/19 01:56 Home Medications: Ambulatory Orders Famotidine [Pepcid] 20 mg PO BID #30 tablet 01/14/19 Anemia: No Asthma: No Cancer: No Cardiac Disorders: No CVA: No COPD: No CHF: No Dementia: No Diabetes: No GI Disorders: Yes (acid reflux) Disorders: No HTN: No Hypercholesterolemia: No Liver Disease: No Seizures: No Thyroid Disease: No - Immunization History Immunization Up to Date: Yes - Psycho Social/Smoking Cessation Hx Smoking Status: No Smoking History: Never smoked Have you smoked in the past 12 months: No Number of Cigarettes Smoked Daily: 20 Information on smoking cessation initiated: No Hx Alcohol Use: No Drug/Substance Use Hx: No Substance Use Type: None Hx Substance Use Treatment: No Review of Systems - Review of Systems Comments:: 04/13/19 02:06 GENERAL/CONSTITUTIONAL: No fever or chills. No weakness. HEAD, EYES, EARS, NOSE AND THROAT: No change in vision. No ear pain or discharge. No sore throat. CARDIOVASCULAR: No chest pain or shortness of breath RESPIRATORY: No cough, wheezing, or hemoptysis. GASTROINTESTINAL: +RLQ Pain as described. No nausea, vomiting, diarrhea or constipation. GENITOURINARY: No dysuria, frequency, or change in urination. MUSCULOSKELETAL: No joint or muscle swelling or pain. No neck or back pain. SKIN: No rash NEUROLOGIC: No headache, vertigo, loss of consciousness, or change in strength/ sensation. ENDOCRINE: No increased thirst. No abnormal weight change HEMATOLOGIC/LYMPHATIC: No anemia, easy bleeding, or history of blood clots. ALLERGIC/IMMUNOLOGIC: No hives or skin allergy. *Physical Exam - Vital Signs Last Vital Signs Temp Pulse Resp BP Pulse Ox 98.1 F 90 19 131/89 100 04/13/19 01:35 04/13/19 01:35 04/13/19 01:35 04/13/19 01:35 04/13/19 01:35 - Physical Exam 04/13/19 02:07 GENERAL: Awake, alert, and fully oriented, in no acute distress HEAD: No signs of trauma, normocephalic, atraumatic EYES: PERRLA, EOMI, sclera anicteric, conjunctiva clear ENT: Auricles normal inspection, hearing grossly normal, nares patent, oropharynx clear without exudates. Moist mucosa NECK: Normal ROM, supple, no lymphadenopathy, JVD, or masses LUNGS: No distress, speaks full sentences, clear to auscultation bilaterally HEART: Regular rate and rhythm, normal S1 and S2, no murmurs, rubs or gallops, peripheral pulses normal and equal bilaterally. ABDOMEN: RLQ TTP. Soft, normoactive bowel sounds. No guarding, no rebound. No masses EXTREMITIES: Normal inspection, Normal range of motion, no edema. No clubbing or cyanosis. NEUROLOGICAL: Cranial nerves II through XII grossly intact. Normal speech, normal gait, no focal sensorimotor deficits SKIN: Warm, Dry, normal turgor, no rashes or lesions noted. ED Treatment Course - LABORATORY CBC & Chemistry Diagram: 04/13/19 02:04 04/13/19 02:04 - RADIOLOGY Radiology Studies Ordered: Category Date Time Status ABDOMEN & PELVIS CT WITH CONTR [CT] Stat CT Scan 04/13/19 02:04 Ordered Medical Decision Making - Medical Decision Making 04/13/19 03:59 Mr. Da Silva is a 48 yo male w/ pmh as described who presents for evaluation of symptoms concerning for diverticulitis vs. appendicitis vs. gastritis. Patient evaluated with labs as below as well as CT abd/pelvis. Labs grossly wnl , CT significant only for small fat containing umbilical hernia. 04/13/19 04:42 Patient remains in pain / acutely tender. IV morphine given and patient will be admitted for pain control. Laboratory Results - last 24 hr 04/13/19 04/13/19 04/13/19 02:04 02:04 02:04 WBC 7.4 RBC 5.18 Hgb 13.6 Hct 41.4 MCV 79.9 L MCH 26.3 MCHC 32.9 RDW 15.3 Plt Count 199 MPV 9.3 Absolute Neuts (auto) 4.0 Neutrophils % 53.7 Lymphocytes % 33.5 D Monocytes % 10.7 H Eosinophils % 1.7 Basophils % 0.4 Nucleated RBC % 0 PT with INR INR PTT (Actin FS) 34.3 Sodium 140 Potassium 4.0 Chloride 104 Carbon Dioxide 29 Anion Gap 7 L BUN 18.0 Creatinine 0.8 Est GFR (CKD-EPI)AfAm 120.72 Est GFR (CKD-EPI)NonAf 104.16 Random Glucose 93 Lactic Acid Calcium 9.1 Total Bilirubin 0.2 AST 18 ALT 30 Alkaline Phosphatase 66 Total Protein 7.2 Albumin 3.6 Lipase 04/13/19 04/13/19 04/13/19 02:04 02:04 02:04 WBC RBC Hgb Hct MCV MCH MCHC RDW Plt Count MPV Absolute Neuts (auto) Neutrophils % Lymphocytes % Monocytes % Eosinophils % Basophils % Nucleated RBC % PT with INR 11.30 INR 0.96 PTT (Actin FS) Sodium Potassium Chloride Carbon Dioxide Anion Gap BUN Creatinine Est GFR (CKD-EPI)AfAm Est GFR (CKD-EPI)NonAf Random Glucose Lactic Acid 0.7 Calcium Total Bilirubin AST ALT Alkaline Phosphatase Total Protein Albumin Lipase 131 Discharge - Discharge Information Problems reviewed: Yes Clinical Impression/Diagnosis: Abdominal pain Qualifiers: Abdominal location: right lower quadrant Qualified Code(s): R10.31 - Right lower quadrant pain - Admission Yes - Follow up/Referral Referrals: Lencho Kemp MD [Primary Care Provider] - - Patient Discharge Instructions Patient Printed Discharge Instructions: DI for Abdominal Pain-Adult - Post Discharge Activity
[2019-04-13] MEDS ORDERED: SODIUM CHLORIDE 1,000 ML IV STA (02:10)
[2019-04-13] MEDS ORDERED: ACETAMINOPHEN 1000 MG/100 ML VIAL (NON FORMULARY) IVPB ONE (02:11)
[2019-04-13] MEDS ORDERED: ACETAMINOPHEN INJECTION 100 ML IVPB ONE ×2 (02:25→19:48)
[2019-04-13 02:37] LABS: BASO % 0.4 % (0-2.0); MCH 26.3 pg (25.7-33.7); MCHC 32.9 g/dl (32.0-35.9); MEAN CELL VOLUME 79.9 fl (80-96); PLATELET COUNT 199 K/MM3 (134-434)
[2019-04-13 02:53] LABS: INR 0.96 (0.83-1.09); PROTHROMBIN TIME (PATIENT) 11.3 SEC (9.7-13.0)
[2019-04-13 03:15] LABS: ALBUMIN 3.6 g/dl (3.4-5.0); BILIRUBIN,TOTAL 0.2 mg/dL (0.2-1); CALCIUM 9.1 mg/dL (8.5-10.1); CREATININE 0.8 mg/dL (0.55-1.3); TOT PROT 7.2 g/dl (6.4-8.2)
[2019-04-13 03:31] LABS: EOS % 1.7 % (0-4.5); HEMATOCRIT 41.4 % (35.4-49); HEMOGLOBIN 13.6 GM/dL (11.7-16.9); LYMPH % 33.5 % (8-40); MEAN PLT VOLUME 9.3 fl (7.5-11.1); MONO % 10.7 % (3.8-10.2); NEUT % 53.7 % (42.8-82.8); RBC 5.18 M/mm3 (4.00-5.60); RDW 15.3 % (11.9-15.9); WHITE BLOOD COUNT 7.4 K/mm3 (4.0-10.0)
[2019-04-13] MEDS ORDERED: LACTULOSE 20 GM/30 ML UDC (FOR ORAL USE ONLY) PO ONE (03:50)
[2019-04-13] MEDS ORDERED: LACTULOSE 20 GM/30 ML UDC (FOR ORAL USE ONLY) ONE (04:01)
[2019-04-13 04:37] LABS: URINE APPEARANCE CLEAR; URINE BILIRUBIN NEGATIVE (NEGATIVE); URINE COLOR YELLOW; URINE GLUCOSE (UA) NEGATIVE (NEGATIVE); URINE KETONE NEGATIVE (NEGATIVE); URINE LEUK ESTERASE NEGATIVE (NEGATIVE); URINE NITRITE NEGATIVE (NEGATIVE); URINE PROTEIN NEGATIVE (NEGATIVE); URINE UROBILINOGEN 0.2 mg/dL (0.2-1.0)
[2019-04-13] MEDS ORDERED: morphine CARPU-JECT 4 MG/1 ML DISP.SYRIN IVPUSH ONE (04:42)
--- NOTE | 2019-04-13 04:58 | PN ---
Teaching Attending Note Name of Resident: Lina Birch ATTENDING PHYSICIAN STATEMENT I saw and evaluated the patient. I reviewed the resident's note and discussed the case with the resident. I agree with the resident's findings and plan as documented. SUBJECTIVE: Patient is a 48 year old man with a PMH of GERD (Prior Rx for H. Pylori), Left spermatocele (s/p spematocelectomy), ?Chronic back pain (intermittent use of NSAIDS) and Multiple dog and cat bites (Worked in [employer]) who presents for evaluation of 1 day history of RLQ pain. Patient reports pain started around 10a m this morning and has remained constant all day. Rates pain as 5/10. Took 2 tylenol pills earlier today at 5 pm however reports pain persists. Denies other symptoms at this time. The patient denies chest pain, shortness of breath, headache, dizziness, fever, chills, nausea, vomiting, diarrhea, constipation, dysuria, frequency, urgency and hematuria. Denies alcohol, tobacco or illicit drug use. No sick contacts or recent travels. FH of Liver cancer. OBJECTIVE: Alert Vital Signs Period Temp Pulse Resp BP Sys/Lovelace Pulse Ox Last 24 Hr 98.1 F 90 19 131/89 100 HEENT: No Jaundice, eye redness or discharge, PERRLA, EOMI. Normocephalic, atraumatic. External ears are normal and hearing is grossly intact. No nasal discharge. Neck: Supple, nontender. No palpable adenopathy or thyromegaly. No JVD Chest: Good effort. Clear to auscultation and percussion. Heart: Regular. No S3, rub or murmur Abdomen: Not distended, soft, RLQ tenderness and no HSM. No rebound or guarding. Normal bowel sounds. Ext: Peripheral pulses intact. No leg edema. Skin: Warm and dry. No petechiae, rash or ecchymosis. Neuro: Alert. Oriented x3. CN 2-12 grossly intact. Sensation grossly intact in all four extremities and DTR are symmetric. Psych: Appropriate mood and affect. Good insight. Home Medications Medication Instructions Recorded Famotidine [Pepcid] 20 mg PO BID #30 tablet 01/14/19 Abnormal Lab Results 04/13/19 04/13/19 02:04 02:04 MCV 79.9 L Monocytes % 10.7 H Anion Gap 7 L ASSESSMENT AND PLAN: 1. Abdominal pain - Etiology unclear. Preliminary report of CT abdomen/pelvis with IV contrast showed no evidence of appendicitis, although the appendix is not clearly identified. In the ER he got IV Flagyl, IV Morphine, IV Acetaminophen, Lactulose, Ibuprofen and IV NS. Will give him IV NS, keep him NPO , control pain with morphine, await official report of CT scan and consult GI and Surgery. EKG pending. Will continue comprehensive care for all of patients comorbid conditions including Protonix for GERD. 2. DVT prophylaxis - Lovenox 40 mg SQ q 24 hours. 3. Advance directives - Full code
[2019-04-13] MEDS ORDERED: morphine SULFATE 4 MG/ML VIAL ONE (05:25)
[2019-04-13] MEDS ORDERED: ACETAMINOPHEN 325 MG TABLET (FP) PO PRN (05:30)
[2019-04-13] MEDS ORDERED: SODIUM CHLORIDE 1,000 ML IV SCH ×2 (05:30→16:56)
[2019-04-13] MEDS ORDERED: MORPHINE SULFATE 2 MG/ML VIAL IVPUSH SCH (05:45)
[2019-04-13] MEDS ORDERED: HEPARIN NA (PORCINE) 5,000 UNITS/ML 1ML VIAL SQ SCH (06:00)
--- NOTE | 2019-04-13 06:32 | HP ---
CHIEF COMPLAINT: RLQ pain PCP: Lencho Kemp HISTORY OF PRESENT ILLNESS: 48 y/o M, pmh of left spermatocele s/p resection, H-pylori? Gastritis s/p treated, GERD, umbilical hernia, presents to the ED c/o sharp, 08/21, right lower quadrant abdominal pain of 1 day duration that started today morning at 10 am and has since persisted. Pt reports that he has never had such symptoms and that he was only drinking coffee when the pain spontaneously began. Pt did not take anything to alleviate the pain. Pt was seen in the [facility] ED last year for GERD and stomach pain/chest pain which was believed to gastritis and was started on protonix 40. He has had normal colonoscopy and EGD 2 yrs ago. Denies f/c/n/v/d/sob, chest pain, back pain. ER course was notable for: (1) Metronidazole 500 given in the ED (2) Tylenol/Motrin for pain given (3)Lactulose also given Recent Travel: denies PAST MEDICAL HISTORY: left spermatocele s/p resection, H-pylori? Gastritis s/p treated, GERD, umbilical hernia, PAST SURGICAL HISTORY: left spermatocele s/p resection Social History: Smoking: denies Alcohol: denies Drugs: denies Occupation: Works at an animal [employer] Allergies piperacillin sodium [From Zosyn] Allergy (Intermediate, Verified 04/13/19 01:56) Difficulty Breathing patient had unasyn and had no reaction tazobactam sodium [From Zosyn] Allergy (Intermediate, Verified 04/13/19 01:56) Difficulty Breathing patient had unasyn and had no reaction vancomycin Allergy (Verified 04/13/19 01:56) Itching tachycardia HOME MEDICATIONS: Home Medications Medication Instructions Recorded Famotidine [Pepcid] 20 mg PO BID #30 tablet 01/14/19 Pantoprazole Sodium 40 mg PO DAILY 04/13/19 REVIEW OF SYSTEMS CONSTITUTIONAL: Absent: fever, chills, diaphoresis, generalized weakness, HEENT: Absent: rhinorrhea, nasal congestion, throat pain, throat swelling, difficulty swallowing CARDIOVASCULAR: Absent: chest pain, syncope, palpitations, irregular heart rate, RESPIRATORY: Absent: cough, shortness of breath, dyspnea with exertion, GASTROINTESTINAL: Admits: abdominal pain, Absent: abdominal distension, nausea, vomiting, diarrhea, constipation GENITOURINARY: Absent: dysuria, hematuria, flank pain, genital pain MUSCULOSKELETAL: Absent: back pain, neck pain SKIN: Absent: rash PHYSICAL EXAMINATION Vital Signs - 24 hr 04/13/19 04/13/19 01:35 05:33 Temperature 98.1 F Pulse Rate 90 Pulse Rate [ 80 Right] Respiratory 19 18 Rate Blood Pressure 131/89 Blood Pressure 126/88 [Right Arm] O2 Sat by Pulse 100 98 Oximetry (%) GENERAL: Awake, alert, and fully oriented, in no acute distress. EYES: PERRLA, EOMI, No lid lag. EARS, NOSE, THROAT: Moist mucous membranes. LUNGS: Breath sounds equal, clear to auscultation bilaterally. No wheezes, and no crackles. HEART: Regular rate and rhythm, normal S1 and S2 without murmur, rub or gallop. ABDOMEN: Soft, RLQ pain and tenderness, not distended, normoactive bowel sounds, no guarding, no rebound, no masses. Li sign negative, psoas sign negative, mcburneys point positive elicits severe tenderness MUSCULOSKELETAL: No CVA tenderness. LOWER EXTREMITIES: 2+ pulses, warm, well-perfused. No peripheral edema. NEUROLOGICAL: Normal speech. Normal gait. PSYCHIATRIC: Cooperative. Good eye contact. Appropriate mood and affect. SKIN: Warm, dry, normal turgor, Laboratory Results - last 24 hr 04/13/19 04/13/19 04/13/19 02:04 02:04 02:04 WBC 7.4 RBC 5.18 Hgb 13.6 Hct 41.4 MCV 79.9 L MCH 26.3 MCHC 32.9 RDW 15.3 Plt Count 199 MPV 9.3 Absolute Neuts (auto) 4.0 Neutrophils % 53.7 Lymphocytes % 33.5 D Monocytes % 10.7 H Eosinophils % 1.7 Basophils % 0.4 Nucleated RBC % 0 PT with INR INR PTT (Actin FS) 34.3 Sodium 140 Potassium 4.0 Chloride 104 Carbon Dioxide 29 Anion Gap 7 L BUN 18.0 Creatinine 0.8 Est GFR (CKD-EPI)AfAm 120.72 Est GFR (CKD-EPI)NonAf 104.16 Random Glucose 93 Lactic Acid Calcium 9.1 Total Bilirubin 0.2 AST 18 ALT 30 Alkaline Phosphatase 66 Total Protein 7.2 Albumin 3.6 Lipase Urine Color Urine Appearance Urine pH Ur Specific [place] Urine Protein Urine Glucose (UA) Urine Ketones Urine Blood Urine Nitrite Urine Bilirubin Urine Urobilinogen Ur Leukocyte Esterase Blood Type Antibody Screen ASSESSMENT/PLAN: 48 y/o M, pmh of left spermatocele s/p resection, H-pylori? Gastritis s/p treate d, GERD, umbilical hernia, presents to the ED c/o sharp, 08/21, right lower quadrant abdominal pain of 1 day duration that started today morning at 10 am and has since persisted is admitted for RLQ pain likely 2/2 to acute appendicitis #Right lower quadrant pain suspicious for Acute Appendicitis although [facility] CT read is negative vs Direct inguinal hernia? incarcerated? Pt is tender at McBurney's point Metronidazole given in ed, can d/c likely Noninfectious- considering afebrile, no leukocytosis No evidence of nephrolithiasis or pyelo or diverticulitis Hx of cat bites places him at risk, pseudo-appendicitis can be seen w/ Yersinia entercolitica- unlikely CT a/p as per [facility] read shows no evidence of acute appendicitis, although the appendix is not visualized. Small umbilical hernia seen. Direct hernia also possible likely given presence of umbilical hernia Will wait for official CT a/p read before consulting surgery and GI cont IVF at 83 cont protonix 40 daily Morphine 1 mg Q4 and Tylenol Q4 650mg for pain control Consider placing consults once official CT read is received #GERD cont protonix 40 daily #Umbilical hernia small and reducible stable #DVT ppx heparin FEN monitor lytes IVF at 83 NPO Dispo: cont IV hydration, pending official CT read, place GI and Surgical consult. Visit type - Emergency Visit Emergency Visit: Yes ED Registration Date: 04/13/19 Care time: The patient presented to the Emergency Department on the above date and was hospitalized for further evaluation of their emergent condition. - New Patient This patient is new to me today: Yes Date on this admission: 04/14/19 - Critical Care Critical Care patient: No ATTENDING PHYSICIAN STATEMENT I saw and evaluated the patient. I reviewed the resident's note and discussed the case with the resident. I agree with the resident's findings and plan as documented. SUBJECTIVE: OBJECTIVE: ASSESSMENT AND PLAN:
[2019-04-13] MEDS ORDERED: MORPHINE SULFATE 2 MG/ML VIAL IVPUSH PRN (09:45)
[2019-04-13] MEDS ORDERED: PANTOPRAZOLE 40 MG TABLET PO SCH (10:00)
--- NOTE | 2019-04-13 10:53 | CONSULT ---
Consult Consult Specialty:: General Surgery Referred by:: Grecia Toro Reason for Consultation:: appendicitis - History of Present Illness Chief Complaint: RLQ pain History of Present Illness: 48yo M with GERD presented with RLQ pain beginning around 10am yesterday while drinking coffee. He denies N/V, F/C, diarrhea or constipation. Had formed BM this morning. Pain persisted despite a couple Jasmyne aspirin. In ER, he had normal wbc, was afebrile, and CT showed stool in colon, but no clear signs of appendicitis, though the appendix was not clearly seen. He has had IV fluids, one dose of flagyl, and tylenol. Surgery was asked to assess. He is seen and examined in bed. Pain is still present, about the same. It hurts when he breathes deeply. He denies antecedent central abdominal discomfort, never had this pain before. - History Source History Provided By: Patient Limitations to Obtaining History: No Limitations - Past Medical History Gastrointestinal: Yes: GERD - Past Surgical History Past Surgical History: Yes: Colonoscopy, Upper Endoscopy Additional Surgical History: left spermatocele repair; deviated septum repair - Alcohol/Substance Use Hx Alcohol Use: No History of Substance Use: reports: None - Smoking History Smoking history: Former smoker Have you smoked in the past 12 months: No If you are a former smoker, when did you quit?: many years ago - Social History ADL: Independent Occupation: crop or grain farmworker History of Recent Travel: No Home Medications - Allergies Allergies/Adverse Reactions: Allergies Allergy/AdvReac Type Severity Reaction Status Date / Time piperacillin sodium Allergy Intermediate Difficulty Verified 04/13/19 01:56 [From Zosyn] Breathing tazobactam sodium Allergy Intermediate Difficulty Verified 04/13/19 01:56 [From Zosyn] Breathing vancomycin Allergy Itching Verified 04/13/19 01:56 - Home Medications Home Medications: Ambulatory Orders Famotidine [Pepcid] 20 mg PO BID #30 tablet 01/14/19 Pantoprazole Sodium 40 mg PO DAILY 04/13/19 Family Medical History Family History: Unremarkable (noncontributory) Review of Systems - Review of Systems Constitutional: denies: Chills, Fever Eyes: reports: Other (uses reading glasses). denies: Recent Change in Vision HENT: denies: Difficult Swallowing, Throat Pain Neck: denies: Swollen Glands, Tenderness Cardiovascular: denies: Chest Pain, Palpitations Respiratory: denies: Cough, SOB Gastrointestinal: reports: Abdominal Pain (with hpi). denies: Constipation, Diarrhea, Nausea, Vomiting Genitourinary: denies: Burning, Dysuria Musculoskeletal: denies: Back Pain, Joint Pain, Muscle Pain Integumentary: denies: Change in Color, Rash Neurological: denies: Dizziness, Headache, Unsteady Gait Psychiatric: denies: Anxiety, Depression Physical Exam Vital Signs: Vital Signs Temperature 98.2 F 04/13/19 07:50 Pulse Rate 76 04/13/19 07:50 Respiratory Rate 20 04/13/19 07:50 Blood Pressure 134/79 04/13/19 07:50 O2 Sat by Pulse Oximetry (%) 98 04/13/19 05:33 Constitutional: Yes: Well Nourished, No Distress, Calm Eyes: Yes: Conjunctiva Clear, EOM Intact HENT: Yes: Atraumatic, Normocephalic Neck: Yes: Supple, Trachea Midline Cardiovascular: Yes: Regular Rate and Rhythm, Tachycardia (mild) Respiratory: Yes: Regular, CTA Bilaterally Gastrointestinal: Yes: Normal Bowel Sounds, Soft, Hernia (small reducible umbilical), Tenderness (focal RLQ without guarding/rebound). No: Distention ...Rectal Exam: Yes: Deferred Renal/: No: CVA Tenderness - Left, CVA Tenderness - Right Musculoskeletal: No: Back Pain, Joint Stiffness, Joint Swelling Extremities: No: Cool, Cyanosis Edema: No Peripheral Pulses WNL: Yes Integumentary: No: Jaundice, Rash Neurological: Yes: Alert, Oriented Psychiatric: Yes: Alert, Oriented Labs: CBC, BMP 04/13/19 02:04 04/13/19 02:04 CMP Sodium 140 mmol/L (136-145) 04/13/19 02:04 Potassium 4.0 mmol/L (3.5-5.1) 04/13/19 02:04 Chloride 104 mmol/L (98-107) 04/13/19 02:04 Carbon Dioxide 29 mmol/L (21-32) 04/13/19 02:04 Anion Gap 7 MMOL/L (8-16) L 04/13/19 02:04 BUN 18.0 mg/dL (7-18) 04/13/19 02:04 Creatinine 0.8 mg/dL (0.55-1.3) 04/13/19 02:04 Est GFR (CKD-EPI)AfAm 120.72 04/13/19 02:04 Est GFR (CKD-EPI)NonAf 104.16 04/13/19 02:04 Random Glucose 93 mg/dL (74-106) 04/13/19 02:04 Lactic Acid 0.7 mmol/L (0.4-2.0) 04/13/19 02:04 Calcium 9.1 mg/dL (8.5-10.1) 04/13/19 02:04 Total Bilirubin 0.2 mg/dL (0.2-1) 04/13/19 02:04 AST 18 U/L (15-37) 04/13/19 02:04 ALT 30 U/L (13-61) 04/13/19 02:04 Alkaline Phosphatase 66 U/L (45-117) 04/13/19 02:04 Total Protein 7.2 g/dl (6.4-8.2) 04/13/19 02:04 Albumin 3.6 g/dl (3.4-5.0) 04/13/19 02:04 Lipase 131 U/L (73-393) 04/13/19 02:04 INR, PTT INR 0.96 (0.83-1.09) 04/13/19 02:04 Urine Test Results Urine Color Yellow 04/13/19 04:20 Urine Appearance Clear 04/13/19 04:20 Urine pH 7.0 (5.0-8.0) 04/13/19 04:20 Ur Specific [place] 1.020 (1.010-1.035) 04/13/19 04:20 Urine Protein Negative (NEGATIVE) 04/13/19 04:20 Urine Glucose (UA) Negative (NEGATIVE) 04/13/19 04:20 Urine Ketones Negative (NEGATIVE) 04/13/19 04:20 Urine Blood Negative (NEGATIVE) 04/13/19 04:20 Urine Nitrite Negative (NEGATIVE) 04/13/19 04:20 Urine Bilirubin Negative (NEGATIVE) 04/13/19 04:20 Ur Leukocyte Esterase Negative (NEGATIVE) 04/13/19 04:20 Imaging - Results Cat Scan: Report Reviewed, Image Reviewed (appendix not definitively visualized , no free fluid or air, ++ stool in colon, no obstruction) Problem List - Problems (1) Acute appendicitis with localized peritonitis, without perforation, abscess , or gangrene Assessment/Plan: NPO until postop pain meds prn nonnarcotics first line GI/DVT prophylaxis periop antibiotics Discussed with patient risks, benefits and alternatives of laparoscopic possible open appendectomy with possible umbilical hernia repair, including but not limited to bleeding, infection, injury to adjacent structures, intestinal leak or injury, intraabdominal abscess, recurrent or incisional hernia, need for further procedures, ; alternatives include antibiotics, delayed or no surgery - risks of this include failure of nonoperative therapy, perforation, sepsis, recurrence, . Patient desires to proceed with operation - will take to OR for above. Informed consent signed for same. Code(s): K35.30 - ACUTE APPENDICITIS WITH LOC PERITONITIS, W/O PERF OR GANGR (2) Umbilical hernia without obstruction and without gangrene Code(s): K42.9 - UMBILICAL HERNIA WITHOUT OBSTRUCTION OR GANGRENE (3) RLQ abdominal pain Code(s): R10.31 - RIGHT LOWER QUADRANT PAIN (4) GERD without esophagitis Code(s): K21.9 - GASTRO-ESOPHAGEAL REFLUX DISEASE WITHOUT ESOPHAGITIS
--- NOTE | 2019-04-13 12:02 | EKG ---
Test Reason : Blood Pressure : / mmHG Vent. Rate : 083 BPM Atrial Rate : 083 BPM P-R Int : 154 ms QRS Dur : 102 ms QT Int : 362 ms P-R-T Axes : 056 -02 004 degrees QTc Int : 425 ms NORMAL SINUS RHYTHM POSSIBLE LEFT ATRIAL ENLARGEMENT NONSPECIFIC INTRAVENTRICULAR CONDUCTION DEFECT WHEN COMPARED WITH ECG OF 14-JAN-2019 13:52, NO SIGNIFICANT CHANGE WAS FOUND Confirmed by LARRY CISSE MD ([id number]) on 04/13/2019 12:01:59 PM Referred By: Confirmed By:LARRY CISSE MD
[2019-04-13] MEDS ORDERED: ONDANSETRON 4 MG/2 ML VIAL IVPUSH PRN (12:37)
[2019-04-13] MEDS ORDERED: PROMETHAZINE HCL 25 MG/1 ML VIAL IVPUSH PRN (12:37)
[2019-04-13] MEDS ORDERED: LACTATED RINGERS SOLUTION 1,000 ML IV SCH ×2 (12:45→20:30)
--- NOTE | 2019-04-13 15:08 | PN ---
Teaching Attending Note Name of Resident: Demetrius Victor ATTENDING PHYSICIAN STATEMENT I saw and evaluated the patient. I reviewed the resident's note and discussed the case with the resident. I agree with the resident's findings and plan as documented. SUBJECTIVE: Ongoing RLQ pain. No nausea/vomiting/fever/chills. OBJECTIVE: Afebrile, Hemodynamically Stable. Last Vital Signs Temp Pulse Resp BP Pulse Ox 98.2 F 76 20 134/79 98 04/13/19 07:50 04/13/19 07:50 04/13/19 07:50 04/13/19 07:50 04/13/19 05:33 HEENT - Atraumatic, normocephalic. Heart - S1, S2, RRR Lungs - clear to auscultation Abdomen - RLQ tender ++, localized guarding. Umbilical hernia reducible. Extremities - no edema, no calf tenderness. Neuro - AAO x 3. Tone/Power normal all extremities. Laboratory Results - last 24 hr 04/13/19 04/13/19 04/13/19 02:04 02:04 02:04 WBC 7.4 RBC 5.18 Hgb 13.6 Hct 41.4 MCV 79.9 L MCH 26.3 MCHC 32.9 RDW 15.3 Plt Count 199 MPV 9.3 Absolute Neuts (auto) 4.0 Neutrophils % 53.7 Lymphocytes % 33.5 D Monocytes % 10.7 H Eosinophils % 1.7 Basophils % 0.4 Nucleated RBC % 0 PT with INR INR PTT (Actin FS) 34.3 Sodium 140 Potassium 4.0 Chloride 104 Carbon Dioxide 29 Anion Gap 7 L BUN 18.0 Creatinine 0.8 Est GFR (CKD-EPI)AfAm 120.72 Est GFR (CKD-EPI)NonAf 104.16 Random Glucose 93 Lactic Acid Calcium 9.1 Total Bilirubin 0.2 AST 18 ALT 30 Alkaline Phosphatase 66 Total Protein 7.2 Albumin 3.6 Lipase Urine Color Urine Appearance Urine pH Ur Specific [place] Urine Protein Urine Glucose (UA) Urine Ketones Urine Blood Urine Nitrite Urine Bilirubin Urine Urobilinogen Ur Leukocyte Esterase Blood Type Antibody Screen 04/13/19 04/13/19 04/13/19 02:04 02:04 02:04 WBC RBC Hgb Hct MCV MCH MCHC RDW Plt Count MPV Absolute Neuts (auto) Neutrophils % Lymphocytes % Monocytes % Eosinophils % Basophils % Nucleated RBC % PT with INR 11.30 INR 0.96 PTT (Actin FS) Sodium Potassium Chloride Carbon Dioxide Anion Gap BUN Creatinine Est GFR (CKD-EPI)AfAm Est GFR (CKD-EPI)NonAf Random Glucose Lactic Acid Calcium Total Bilirubin AST ALT Alkaline Phosphatase Total Protein Albumin Lipase 131 Urine Color Urine Appearance Urine pH Ur Specific [place] Urine Protein Urine Glucose (UA) Urine Ketones Urine Blood Urine Nitrite Urine Bilirubin Urine Urobilinogen Ur Leukocyte Esterase Blood Type O POSITIVE Antibody Screen Negative 04/13/19 04/13/19 02:04 04:20 WBC RBC Hgb Hct MCV MCH MCHC RDW Plt Count MPV Absolute Neuts (auto) Neutrophils % Lymphocytes % Monocytes % Eosinophils % Basophils % Nucleated RBC % PT with INR INR PTT (Actin FS) Sodium Potassium Chloride Carbon Dioxide Anion Gap BUN Creatinine Est GFR (CKD-EPI)AfAm Est GFR (CKD-EPI)NonAf Random Glucose Lactic Acid 0.7 Calcium Total Bilirubin AST ALT Alkaline Phosphatase Total Protein Albumin Lipase Urine Color Yellow Urine Appearance Clear Urine pH 7.0 Ur Specific [place] 1.020 Urine Protein Negative Urine Glucose (UA) Negative Urine Ketones Negative Urine Blood Negative Urine Nitrite Negative Urine Bilirubin Negative Urine Urobilinogen 0.2 Ur Leukocyte Esterase Negative Blood Type Antibody Screen Current Medications Generic Name Dose Route Start Last Admin Trade Name Freq PRN Reason Stop Dose Admin Acetaminophen 650 mg 04/13/19 05:30 Tylenol - PO Q4H PRN PAIN LEVEL 4 - 6 Fentanyl 50 mcg 04/13/19 12:37 Sublimaze Injection - IVPUSH [id number] PRN PAIN-PACU ORDER X 4 DOSES ONLY Heparin Sodium (Porcine) 5,000 unit 04/13/19 06:00 Heparin - SQ TID MADELAINE Sodium Chloride 1,000 mls @ 83 mls/hr 04/13/19 05:30 04/13/19 07:49 Normal Saline - IV 83 mls/hr ASDIR MADELAINE Administration Lactated Ringer's 1,000 mls @ 125 mls/hr 04/13/19 12:45 Lactated Ringers Solution IV ASDIR MADELAINE Ondansetron HCl 4 mg 04/13/19 12:37 Zofran Injection IVPUSH Q6H PRN NAUSEA AND/OR VOMITING Pantoprazole Sodium 40 mg 04/13/19 10:00 04/13/19 09:57 Protonix - PO Not Given DAILY MADELAINE Promethazine HCl 12.5 mg 04/13/19 12:37 Phenergan Injection - IVPUSH Q6H PRN NAUSEA-FOR RESCUE AFTER 15 MIN Home Medications Medication Instructions Recorded Famotidine [Pepcid] 20 mg PO BID #30 tablet 01/14/19 Pantoprazole Sodium 40 mg PO DAILY 04/13/19 ASSESSMENT AND PLAN: 48 year old male wit history of Left spermatocele s/p resection, Gastritis s/p treatment, GERD, umbilical hernia, presents with acute onset RLQ abdominal pain.No fever/chills/nausea/vomiting/melena/hematochezia. 1. Acute Appendicitis Clinical diagnosis, appendix not visualized on CT A/P NPO/IV Fluids Surgery - for OR today for lap appendectomy. 2. GERD - continue Protonix. DVT Px - Heparin SQ.
[2019-04-13] MEDS ORDERED: PROPOFOL 20 ML ONE ×2 (18:27→19:56)
[2019-04-13] MEDS ORDERED: ROCURONIUM BROMIDE 50 MG/5 ML SYRINGE ONE (18:27)
[2019-04-13] MEDS ORDERED: MIDAZOLAM HCL 2 MG/2 ML SINGLE DOSE VIAL ONE (18:27)
[2019-04-13] MEDS ORDERED: DEXAMETHASONE SOD PHOSPHATE 4 MG/1 ML VIAL ONE (18:53)
[2019-04-13] MEDS ORDERED: BUPIVACAINE HCL/PF 0.5% (5MG/ML) 10 ML VIAL NR ONE (18:58)
[2019-04-13] MEDS ORDERED: GLYCOPYRROLATE 0.2 MG/1 ML VIAL ONE (19:50)
[2019-04-13] MEDS ORDERED: NEOSTIGMINE METHYLSULFATE 0.5 MG/ML - 10 ML MDV ONE (19:51)
--- NOTE | 2019-04-13 20:28 | OP ---
Operative Note - Note: Operative Date: 04/13/19 Pre-Operative Diagnosis: acute appendicitis and umbilical hernia Operation: laparoscopic appendectomy with primary umbilical hernia repair Findings: umbilical hernia defect used for Yaquelin trocar and closed on way out; small bit of infarcted fat (epiploic?) over TI/cecum adherent to RLQ abdominal wall; small appendix with mildly dilated tip Post-Operative Diagnosis: Same as Pre-op (with possible epiploic appendagitis) Surgeon: César Clark Anesthesiologist/JACK PRIZER: Ty Murphy Anesthesia: General, Local (10ml 0.5% marcaine) Specimens Removed: appendix to pathology Estimated Blood Loss (mls): 5 Drains & Tubes with Location: Syed out at case end Drains, Volume Out (mls): 200 (UOP) Fluid Volume Replaced (mls): 600 (crystalloid) Operative Report Dictated: Yes
[2019-04-13] MEDS ORDERED: ONDANSETRON 4 MG/2 ML VIAL ONE (20:54)
[2019-04-13] MEDS: LACTATED RINGERS SOLUTION 1,000 ML IV SCH ×2 (22:19→22:56)
[2019-04-13] MEDS: HEPARIN NA (PORCINE) 5,000 UNITS/ML 1ML VIAL SQ SCH (22:54)
[2019-04-13] MEDS: IBUPROFEN 600 MG TABLET (FP) PO SCH (23:06)
[2019-04-14] MEDS ORDERED: IBUPROFEN 600 MG TABLET (FP) PO SCH
[2019-04-14] MEDS: ACETAMINOPHEN 325 MG TABLET (FP) PO SCH ×3 (02:42→15:42)
[2019-04-14] MEDS ORDERED: ACETAMINOPHEN 325 MG TABLET (FP) PO SCH (03:00)
[2019-04-14] MEDS: IBUPROFEN 600 MG TABLET (FP) PO SCH ×2 (05:58→13:50)
[2019-04-14] MEDS: HEPARIN NA (PORCINE) 5,000 UNITS/ML 1ML VIAL SQ SCH ×2 (05:59→13:50)
[2019-04-14 07:11] LABS: BASO % 0.1 % (0-2.0); HEMATOCRIT 39.8 % (35.4-49); HEMOGLOBIN 13.3 GM/dL (11.7-16.9); LYMPH % 8.4 % (8-40); MCH 26.5 pg (25.7-33.7); MCHC 33.3 g/dl (32.0-35.9); MEAN CELL VOLUME 79.6 fl (80-96); MEAN PLT VOLUME 9.2 fl (7.5-11.1); MONO % 6.1 % (3.8-10.2); NEUT % 85.4 % (42.8-82.8); PLATELET COUNT 194 K/MM3 (134-434); RBC 5.01 M/mm3 (4.00-5.60); RDW 15.4 % (11.9-15.9); WHITE BLOOD COUNT 9.1 K/mm3 (4.0-10.0)
[2019-04-14 07:44] LABS: ALBUMIN 3.2 g/dl (3.4-5.0); BILIRUBIN,TOTAL 0.8 mg/dL (0.2-1); BLOOD UREA NITROGEN 12.7 mg/dL (7-18); CALCIUM 8.4 mg/dL (8.5-10.1); CREATININE 0.8 mg/dL (0.55-1.3); MAGNESIUM 2.1 mg/dL (1.8-2.4); PHOSPHOROUS 3.3 mg/dL (2.5-4.9); POTASSIUM 4.2 mmol/L (3.5-5.1); TOT PROT 6.7 g/dl (6.4-8.2)
[2019-04-14] MEDS: LACTATED RINGERS SOLUTION 1,000 ML IV SCH (09:16)
[2019-04-14] MEDS ORDERED: PANTOPRAZOLE 40 MG TABLET PO SCH (10:00)
--- NOTE | 2019-04-14 14:19 | PN ---
Teaching Attending Note Name of Resident: Demetrius Victor ATTENDING PHYSICIAN STATEMENT I saw and evaluated the patient. I reviewed the resident's note and discussed the case with the resident. I agree with the resident's findings and plan as documented. SUBJECTIVE: POD 1 s/p laparoscopic appendectomy. No fever/chills/nausea/vomiting /fever/chills. Tolerating oral intake. OBJECTIVE: Afebrile, Hemodynamically Stable. Last Vital Signs Temp Pulse Resp BP Pulse Ox 97.3 F L 106 H 18 116/69 97 04/14/19 05:37 04/14/19 05:37 04/14/19 05:37 04/14/19 05:37 04/13/19 22:50 Heart - S1, S2, RRR Lungs - clear to auscultation Abdomen - Trochar sites clean. Generalized tenderness worse in RLQ. Soft. Extremities - no edema, no calf tenderness. Neuro - AAO x 3. Tone/Power normal all extremities. Laboratory Results - last 24 hr 04/14/19 04/14/19 06:05 06:05 WBC 9.1 RBC 5.01 Hgb 13.3 Hct 39.8 MCV 79.6 L MCH 26.5 MCHC 33.3 RDW 15.4 Plt Count 194 MPV 9.2 Absolute Neuts (auto) 7.8 Neutrophils % 85.4 H D Lymphocytes % 8.4 D Monocytes % 6.1 Eosinophils % 0.0 D Basophils % 0.1 Nucleated RBC % 0 Sodium 138 Potassium 4.2 Chloride 103 Carbon Dioxide 27 Anion Gap 7 L BUN 12.7 Creatinine 0.8 Est GFR (CKD-EPI)AfAm 120.72 Est GFR (CKD-EPI)NonAf 104.16 Random Glucose 117 H Calcium 8.4 L Phosphorus 3.3 Magnesium 2.1 Total Bilirubin 0.8 AST 15 ALT 24 Alkaline Phosphatase 59 Total Protein 6.7 Albumin 3.2 L Current Medications Generic Name Dose Route Start Last Admin Trade Name Freq PRN Reason Stop Dose Admin Acetaminophen 650 mg 04/14/19 03:00 04/14/19 09:16 Tylenol - PO 650 mg Q6H MADELAINE Administration Heparin Sodium (Porcine) 5,000 unit 04/13/19 22:00 04/14/19 13:50 Heparin - SQ 5,000 unit TID MADELAINE Administration Lactated Ringer's 1,000 mls @ 100 mls/hr 04/13/19:34 04/14/19 09:16 Lactated Ringers Solution IV 100 mls/hr ASDIR MADELAINE Administration Ibuprofen 600 mg 04/14/19 00:00 04/14/19 13:50 Motrin - PO 600 mg Q6H MADELAINE Administration Pantoprazole Sodium 40 mg 04/14/19 10:00 04/14/19 09:16 Protonix - PO 40 mg DAILY MADELAINE Administration Home Medications Medication Instructions Recorded Pantoprazole Sodium 40 mg PO DAILY 04/13/19 Acetaminophen [Tylenol .Regular 650 mg PO Q6H tablet 04/14/19 Strength -] Ibuprofen [Motrin -] 600 mg PO Q6H tablet 04/14/19 ASSESSMENT AND PLAN: 48 year old male with history of Left spermatocele s/p resection, Gastritis s/p treatment, GERD, umbilical hernia, presents with acute onset RLQ abdominal pain , found to have acute appendicitis. No fever/chills/nausea/vomiting/melena/ hematochezia. 1. Acute Appendicitis Appendix not visualized on CT A/P POD 1 s/p laparoscopic appendectomy with primary umbilical hernia repair. Advance diet as per Surgery. If tolerates, can be discharged today. 2. GERD - continue Protonix. Medically and Surgically stable for discharge once tolerating oral intake.
--- NOTE | 2019-04-14 14:44 | PN ---
Progress Note, Physician History of Present Illness: Pt s/p lap appy and umbilical hernia repair, with findings of infarcted epiploic fat adherent to RLQ abd wall and possibly mildly dilated appendiceal tip. Seen and examined in bed, feeling well. Pain controlled with alternating nonnarcotics. Tolerating diet, ambulated, voided, no BM yet. - Current Medication List Current Medications: Active Medications Acetaminophen (Tylenol -) 650 mg PO Q6H [facility] Last Admin: 04/14/19 09:16 Dose: 650 mg Heparin Sodium (Porcine) (Heparin -) 5,000 unit SQ TID [facility] Last Admin: 04/14/19 13:50 Dose: 5,000 unit Lactated Ringer's (Lactated Ringers Solution) 1,000 mls @ 100 mls/hr IV ASDIR [facility] Last Admin: 04/14/19 09:16 Dose: 100 mls/hr Ibuprofen (Motrin -) 600 mg PO Q6H [facility] Last Admin: 04/14/19 13:50 Dose: 600 mg Pantoprazole Sodium (Protonix -) 40 mg PO DAILY [facility] Last Admin: 04/14/19 09:16 Dose: 40 mg - Objective Vital Signs: Vital Signs Temperature 97.3 F L 04/14/19 05:37 Pulse Rate 106 H 04/14/19 05:37 Respiratory Rate 18 04/14/19 05:37 Blood Pressure 116/69 04/14/19 05:37 O2 Sat by Pulse Oximetry (%) 97 04/13/19 22:50 Constitutional: Yes: Well Nourished, No Distress, Calm Eyes: Yes: Conjunctiva Clear, EOM Intact HENT: Yes: Atraumatic, Normocephalic Gastrointestinal: Yes: Soft, Distention (mild), Tenderness (minimal incisional only) Extremities: No: Cool, Cyanosis Integumentary: Yes: Incision (x3 dressed). No: Jaundice, Rash Wound/Incision: Yes: Steri Strips (under dressings), Dressing Dry and Intact (x3 ). No: Dressing Removed Neurological: Yes: Alert, Oriented Labs: CBC, BMP 04/14/19 06:05 04/14/19 06:05 Problem List - Problems (1) Acute appendicitis with localized peritonitis, without perforation, abscess , or gangrene Assessment/Plan: POD1 s/p laparoscopic appendectomy with umbilical hernia repair doing well ambulated, voided, tolerating diet pain controlled with tylenol/ibuprofen incisional dressings c/d/i instructions in d/c plan f/u with PMD and surgery as noted Problems reviewed: Yes Code(s): K35.30 - ACUTE APPENDICITIS WITH LOC PERITONITIS, W/O PERF OR GANGR (2) Umbilical hernia without obstruction and without gangrene Code(s): K42.9 - UMBILICAL HERNIA WITHOUT OBSTRUCTION OR GANGRENE (3) RLQ abdominal pain Code(s): R10.31 - RIGHT LOWER QUADRANT PAIN (4) GERD without esophagitis Code(s): K21.9 - GASTRO-ESOPHAGEAL REFLUX DISEASE WITHOUT ESOPHAGITIS
[2019-04-14 14:45] VITALS: BP 107/68; PULSE 114; TEMP 97.8
--- NOTE | 2019-04-14 14:57 | PN ---
Progress Note (short form) - Note Progress Note: Anesthesia POD#1 S/P Lap Cholecystectomy under GA VSS,pain is bearable,no N/V. Food is advanced. No Complications to anesthesia seen. Neyda Naidu MD.
--- NOTE | 2019-04-14 17:04 | DS ---
Physical Exam: SUBJECTIVE: Patient seen and examined. POD1, no fevers or overnight events. Tolerating diet, passing gas. Denies f/c/n/v/d/sob OBJECTIVE: Vital Signs Period Temp Pulse Resp BP Sys/Lovelace Pulse Ox Last 24 Hr 97.3 F-98.0 F 91-114 13-22 107-133/65-80 95-100 PHYSICAL EXAM GENERAL: Awake, alert, and fully oriented, in no acute distress. EYES: PERRLA, EOMI, No lid lag. EARS, NOSE, THROAT: Moist mucous membranes. LUNGS: Breath sounds equal, clear to auscultation bilaterally. No wheezes, and no crackles. HEART: Regular rate and rhythm, normal S1 and S2 without murmur, rub or gallop. ABDOMEN: Soft, mild RLQ pain and tenderness, dressing intact, no purulent drainage, not distended, normoactive bowel sounds, no guarding, no rebound, no masses. MUSCULOSKELETAL: No CVA tenderness. LOWER EXTREMITIES: 2+ pulses, warm, well-perfused. No peripheral edema. NEUROLOGICAL: Normal speech. Normal gait. PSYCHIATRIC: Cooperative. Good eye contact. Appropriate mood and affect. SKIN: Warm, dry, normal turgor, LABS Laboratory Results - last 24 hr 04/14/19 04/14/19 06:05 06:05 WBC 9.1 RBC 5.01 Hgb 13.3 Hct 39.8 MCV 79.6 L MCH 26.5 MCHC 33.3 RDW 15.4 Plt Count 194 MPV 9.2 Absolute Neuts (auto) 7.8 Neutrophils % 85.4 H D Lymphocytes % 8.4 D Monocytes % 6.1 Eosinophils % 0.0 D Basophils % 0.1 Nucleated RBC % 0 Sodium 138 Potassium 4.2 Chloride 103 Carbon Dioxide 27 Anion Gap 7 L BUN 12.7 Creatinine 0.8 Est GFR (CKD-EPI)AfAm 120.72 Est GFR (CKD-EPI)NonAf 104.16 Random Glucose 117 H Calcium 8.4 L Phosphorus 3.3 Magnesium 2.1 Total Bilirubin 0.8 AST 15 ALT 24 Alkaline Phosphatase 59 Total Protein 6.7 Albumin 3.2 L HOSPITAL COURSE: Date of Admission:04/13/19 48 y/o M, pmh of left spermatocele s/p resection, H-pylori? Gastritis s/p treated, GERD, umbilical hernia, presents to the ED c/o sharp, 08/21, right lower quadrant abdominal pain of 1 day duration that started today morning at 10 am and has since persisted is admitted for RLQ pain likely 2/2 to acute appendicitis. Acute Appendicitis although [facility]haw[facility] CT read is negative, Pt is tender at McBurney's point. Metronidazole given in ed. Surgery was consulted and Dr. Clark saw pt. He was taken to the OR the next day. Discussed with Dr. Clark, pt was found to have small infracted fat w/ a small portion of the appendicial tail inflammed. Regardless, appendectomy was performed and pt's umbilical hernia was repaired on the way out. Pt was stable the next day, tolerating diet, passing gas and was ready for discharge. He was discharged home tylenol and motrin, with instructions to care for the wound dressings. Pt was given referral to Dr. Clark's office. CT a/p read shows no evidence of acute appendicitis, although the appendix Date of Discharge: 04/14/19 Minutes to complete discharge: 40 Discharge Summary Problems reviewed: Yes Reason For Visit: ABDOMINAL PAIN Condition: Good - Instructions Diet, Activity, Other Instructions: Postoperative instructions: You had a laparoscopic appendectomy with umbilical hernia repair on 04/13/[address] César Clark of [facility]. You were found to have a small piece of intestinal fat near the appendix, which had lost its blood supply, that was stuck to the abdominal wall, and may have been causing your pain. That will heal by itself. Activity: Resume your usual activities gradually, but no heavy exertion or lifting more than 10-15 pounds for 1 month. Remove dressings 48 hours after surgery; sticky tapes underneath will fall off by themselves. You may shower d aily starting then, just pat the incision areas dry. No bath or swimming until skin incisions have healed. Eat lightly at first, but advance to your usual diet as tolerated. Pain: For pain, you may use and alternate Tylenol (acetaminophen) 1-2 pills and/or ibuprofen 200 mg (1-3 pills) every 6 hours each as needed; this means that you can take one OR the other at 3-hour intervals. Do not take more than 4000mg of acetaminophen in a day. Take medications as prescribed or indicated on the labeling. Follow-up: Call Dr. Clark's office at [phone] to make your postop appointment (Sunday in approximately 3 weeks after surgery). Clinic is held in the Diagnostic Center on the first floor of [facility]. Call the office if you have: * increasing pain not responsive to pain medication * fever of 101F or higher * vomiting * unusual or increasing bleeding or drainage from wounds * increasing redness or swelling at wound sites Also, see your primary medical doctor within 1-2 weeks. Referrals: César Clark MD [Staff Physician] - 3 Weeks (CALL for appointment - clinic is held in Diagnostic Center at [facility] in [place].) Lencho Kemp MD [Primary Care Provider] - 1 Week Disposition: HOME - Home Medications Comprehensive Discharge Medication List: Ambulatory Orders Pantoprazole Sodium 40 mg PO DAILY 04/13/19 Acetaminophen [Tylenol .Regular Strength -] 650 mg PO Q6H tablet 04/14/19 Ibuprofen [Motrin -] 600 mg PO Q6H tablet 04/14/19 This patient is new to me today: Yes Date on this admission: 04/14/19 Emergency Visit: Yes ED Registration Date: 04/13/19 Care time: The patient presented to the Emergency Department on the above date and was hospitalized for further evaluation of their emergent condition. Critical Care patient: No - Discharge Referral Referred to [facility] No ATTENDING PHYSICIAN STATEMENT I saw and evaluated the patient. I reviewed the resident's note and discussed the case with the resident. I agree with the resident's findings and plan as documented. SUBJECTIVE: OBJECTIVE: ASSESSMENT AND PLAN:
--- NOTE | 2019-04-16 17:12 | PATH ---
Surgical Pathology Report Patient Name: SYEDA CEBALLOS Med. Rec. #: [id number] /Age/Gender: 1970 (Age: 48) / M Account: [id number] Location: [address] [place] [address] Taken: 04/13/2019 Received: 04/14/2019 Reported: 04/16/2019 Physicians: César Clark M.D. Specimen(s) Received APPENDIX Clinical History Appendicitis, umbilical hernia Final Diagnosis APPENDIX, LAPAROSCOPIC APPENDECTOMY: APPENDIX WITH FIBROUS OBLITERATION. SEE COMMENT. Comment: No significant acute inflammation identified. Suggest clinical correlation. Electronically Signed Alisson Chery M.D. Gross Description Received in formalin, labeled "appendix," is a 5 cm. in length vermiform appendix with a stapled margin of resection and minimal attached fat. The serosa is waite-pink and smooth. Sectioning reveals an unremarkable lumen. The wall of the appendix averages 0.1 cm. in thickness. The appendix is entirely submitted in 4 cassettes. /04/14/2019 [facility]/04/14/2019
== END 2019-04-14 16:40 | disposition home or self-care (01) | DRG 343 ==
LOC: JER 01:30 → JERBED 04:44 → J6S 07:22
PROVIDERS: ADMIT Internal Medicine
PROC: 0WQF4ZZ Repair Abdominal Wall, Percutaneous Endoscopic Approach (ICD-10-PCS; 2019-04-13)
PROC: 0DTJ4ZZ Resection of Appendix, Percutaneous Endoscopic Approach (ICD-10-PCS; principal; 2019-04-13 16:00)
DX: K35.80 Unspecified acute appendicitis (principal); K42.9 Umbilical hernia without obstruction or gangrene; K21.9 Gastro-esophageal reflux disease without esophagitis; R00.0 Tachycardia, unspecified
CPT/HCPCS: 36415; 74177-TC; 80053; 81003; 83605; 83690; 83735; 84100; 85025; 85610; 85730; 86850; 86900; 86901; 87086; 88304-TC; 93005; 93010; 94010; 94760; 99285-25; J0131; J1644; J7030; Q9967

== ENCOUNTER 2020-10-13 07:50 | Emergency (ER) | payer BC ==
[2020-10-13 08:02] VITALS: BP 124/86; PULSE 81; TEMP 97.7; BMI 29.0
[2020-10-13] MEDS ORDERED: METHOCARBAMOL 500 MG TABLET PO ONE (08:32)
[2020-10-13] MEDS ORDERED: LIDOCAINE 5% TOPICAL PATCH TP ONE (08:32)
[2020-10-13] MEDS ORDERED: KETOROLAC TROMETHAMINE 60 MG/2 ML VIAL IM ONE (08:32)
[2020-10-13] MEDS ORDERED: METHOCARBAMOL 500 MG TABLET ONE (08:46)
[2020-10-13] MEDS ORDERED: KETOROLAC TROMETHAMINE 60 MG/2 ML VIAL ONE (08:46)
[2020-10-13] MEDS ORDERED: LIDOCAINE 5% TOPICAL PATCH ONE (08:47)
== END 2020-10-13 09:45 | disposition home or self-care (01) ==
LOC: JER 07:50
PROC: 3E0233Z Introduction of Anti-inflammatory into Muscle, Percutaneous Approach (ICD-10-PCS; principal; 2020-10-13)
DX: M54.5 Low back pain (principal)
CPT/HCPCS: 99284-25

== ENCOUNTER 2021-01-19 09:31 | Emergency (ER) | payer BC ==
[2021-01-19 09:46] VITALS: BP 147/97; PULSE 88; TEMP 98.3; BMI 29.0
[2021-01-19] MEDS ORDERED: SODIUM CHLORIDE 1,000 ML IV STA (10:25)
[2021-01-19] MEDS ORDERED: KETOROLAC TROMETHAMINE 30 MG/1 ML VIAL IVPUSH ONE (10:25)
[2021-01-19] MEDS ORDERED: KETOROLAC TROMETHAMINE 30 MG/1 ML VIAL ONE (10:48)
[2021-01-19 10:58] LABS: PH,URINE 5.5 (5.0-8.0); URINE APPEARANCE CLEAR; URINE BILIRUBIN NEGATIVE (NEGATIVE); URINE COLOR YELLOW; URINE GLUCOSE (UA) NEGATIVE (NEGATIVE); URINE KETONE NEGATIVE (NEGATIVE); URINE LEUK ESTERASE NEGATIVE (NEGATIVE); URINE NITRITE NEGATIVE (NEGATIVE); URINE PROTEIN NEGATIVE (NEGATIVE); URINE UROBILINOGEN 0.2 mg/dL (0.2-1.0)
[2021-01-19 11:12] LABS: BASO % 0.3 % (0-2.0); EOS % 0.8 % (0-4.5); HEMATOCRIT 44.7 % (35.4-49); HEMOGLOBIN 14.8 GM/dL (11.7-16.9); LYMPH % 21.2 % (8-40); MEAN CELL VOLUME 78.6 fl (80-96); MEAN PLT VOLUME 8.4 fl (7.5-11.1); MONO % 9.5 % (3.8-10.2); NEUT % 68.2 % (42.8-82.8); PLATELET COUNT 210 10^3/uL (134-434); RBC 5.69 M/mm3 (4.00-5.60); RDW 15.5 % (11.9-15.9); WHITE BLOOD COUNT 6.9 K/mm3 (4.0-10.0)
[2021-01-19 11:13] LABS: CALCIUM 9.6 mg/dL (8.5-10.1)
[2021-01-19 11:14] LABS: ALBUMIN 3.6 g/dl (3.4-5.0); BLOOD UREA NITROGEN 13.6 mg/dL (7-18)
[2021-01-19 11:17] LABS: CREATININE 0.8 mg/dL (0.55-1.3)
[2021-01-19 11:18] LABS: TOT PROT 7.8 g/dl (6.4-8.2)
[2021-01-19 11:19] LABS: BILIRUBIN,TOTAL 0.4 mg/dL (0.2-1)
== END 2021-01-19 12:51 | disposition home or self-care (01) ==
LOC: JER 09:31
PROC: 3E033GC Introduction of Other Therapeutic Substance into Peripheral Vein, Percutaneous Approach (ICD-10-PCS; principal; 2021-01-19)
DX: R10.9 Unspecified abdominal pain (principal)
CPT/HCPCS: 36415; 74176-TC; 80053; 81003; 83690; 85025; 99285-25

== ENCOUNTER 2022-04-22 14:12 | Emergency (ER) | payer BC ==
[2022-04-22 14:29] VITALS: TEMP 97.8; BMI 29.2
[2022-04-22] MEDS ORDERED: IBUPROFEN 400 MG TABLET (FP) PO ONE ×2 (16:06→16:25)
[2022-04-22] MEDS ORDERED: LIDOCAINE 5% TOPICAL PATCH TP ONE (16:43)
[2022-04-22] MEDS ORDERED: LIDOCAINE 5% TOPICAL PATCH ONE (16:58)
[2022-04-22 17:07] VITALS: BP 137/83; PULSE 86; RESP 20
== END 2022-04-22 17:07 | disposition home or self-care (01) ==
LOC: JER 14:12
DX: M62.830 Muscle spasm of back (principal); M54.6 Pain in thoracic spine
CPT/HCPCS: 99283-25

== ENCOUNTER 2022-04-27 08:31 | Emergency (ER) | payer BC, OTHER ==
[2022-04-27 08:50] VITALS: BP 150/101; PULSE 106; RESP 18; TEMP 98.3; BMI 28.2
[2022-04-27] MEDS ORDERED: SODIUM CHLORIDE 0.9% 500 ML INFUS.BAG IV ONE (08:52)
[2022-04-27] MEDS ORDERED: KETOROLAC TROMETHAMINE 30 MG/1 ML VIAL IVPUSH ONE (08:52)
[2022-04-27] MEDS ORDERED: KETOROLAC TROMETHAMINE 30 MG/1 ML VIAL ONE (09:06)
[2022-04-27 09:16] LABS: HEMATOCRIT 46.5 % (35.4-49); HEMOGLOBIN 15.6 G/dL (11.7-16.9); MCH 26.2 pg (25.7-33.7); MCHC 33.5 g/dl (32.0-35.9); MEAN CELL VOLUME 78.4 fl (80-96); MEAN PLT VOLUME 8.7 fl (7.5-11.1); PLATELET COUNT 234.4 10^3/uL (134-434); RBC 5.93 10^6/uL (4.00-5.60); RDW 16.1 % (11.9-15.9); WHITE BLOOD COUNT 6.7 10^3/uL (4.0-10.8)
[2022-04-27 09:29] LABS: ALBUMIN 4.1 g/dl (3.4-5.0); BILIRUBIN,TOTAL 0.7 mg/dl (0.2-1); CALCIUM 9.1 mg/dl (8.5-10); CREATININE 0.8 mg/dl (0.55-1.3); TOT PROT 7.9 g/dl (6.4-8.2)
[2022-04-27 09:50] LABS: PLATELET ESTIMATE ADEQUATE
[2022-04-27] MEDS ORDERED: morphine CARPU-JECT 4 MG/1 ML DISP.SYRIN IVPUSH ONE (10:34)
[2022-04-27] MEDS ORDERED: morphine SULFATE 4 MG/ML VIAL ONE (10:37)
== END 2022-04-27 12:08 | disposition home or self-care (01) ==
LOC: FER 08:31
PROC: 3E033GC Introduction of Other Therapeutic Substance into Peripheral Vein, Percutaneous Approach (ICD-10-PCS; principal; 2022-04-27)
DX: M54.89 Other dorsalgia (principal)
CPT/HCPCS: 36415; 74176-TC; 80053; 81003; 85025; 99285-25

== ENCOUNTER 2024-04-15 06:40 | Day surgery (SDC) | payer BC ==
[2024-04-03 10:39] VITALS: BMI 30.3
[2024-04-15] MEDS: TETRACAINE/BENZOCAINE/BUTAMBEN 20 GM SPR TP ONE (08:58)
[2024-04-15 09:32] VITALS: TEMP 98
[2024-04-15 10:05] VITALS: BP 146/96; PULSE 85; RESP 15
== END 2024-04-15 10:27 | disposition home or self-care (01) ==
LOC: JASU-ENDO 06:40
PROVIDERS: ATTEND Internal Medicine Gastroenterology
PROC: 0DB78ZX Excision of Stomach, Pylorus, Via Natural or Artificial Opening Endoscopic, Diagnostic (ICD-10-PCS; 2024-04-15)
PROC: 0DB68ZX Excision of Stomach, Via Natural or Artificial Opening Endoscopic, Diagnostic (ICD-10-PCS; principal; 2024-04-15 08:45)
DX: K44.9 Diaphragmatic hernia without obstruction or gangrene (principal); K31.89 Other diseases of stomach and duodenum; K29.50 Unspecified chronic gastritis without bleeding; K31.7 Polyp of stomach and duodenum
CPT/HCPCS: 88305-TC; 88342-TC

== ENCOUNTER 2024-05-20 06:41 | Day surgery (SDC) | payer BC ==
[2024-05-19 12:37] VITALS: BMI 29.0
[2024-05-20 08:38] VITALS: TEMP 97.8
[2024-05-20 09:17] VITALS: RESP 16
[2024-05-20 09:23] VITALS: BP 145/82; PULSE 80
== END 2024-05-20 09:20 | disposition home or self-care (01) ==
LOC: JASU-ENDO 06:41
PROVIDERS: ATTEND Internal Medicine Gastroenterology
PROC: 0DJD8ZZ Inspection of Lower Intestinal Tract, Via Natural or Artificial Opening Endoscopic (ICD-10-PCS; principal; 2024-05-20 09:15)
DX: Z12.11 Encounter for screening for malignant neoplasm of colon (principal); K64.8 Other hemorrhoids; Z86.0100 Personal history of colon polyps, unspecified